=== PATIENT | female | born 1930 | race Caucasian/White ===

== ENCOUNTER 2018-02-07 08:39 | Inpatient (IN) | payer MEDICARE ==
[2018-02-07] VITALS (10 sets, daily range): BP systolic 135–190; BP diastolic 66–89; PULSE 53–65; RESP 16–25; TEMP 96.9–98.2; O2SAT 96–100
[~2018-02-07] VITALS: Ht 160 cm; Wt 64.3 kg
--- NOTE | 2018-02-07 08:56 | PD ---
HPI Chief Complaint: Stroke Alert Time Seen by Provider: 08:45 Travel History International Travel<30 days: No Contact w/Intl Traveler<30days: No Traveled to known affect area: No History of Present Illness HPI The patient is a 87-year-old female who presents to the emergency department via EMS as a stroke alert. The patient states she was going down of elevator earlier today when she felt like her leg suddenly became weak. Patient attributed to gout that affects her foot. However, the patient felt like she is going to fall and another gentleman helped her to the floor. When EMS arrived the patient initially refused transport. EMS was leaving when they were called once again because it patient suddenly had "garbled speech "and left -sided facial droop with possibly left upper extremity weakness. EMS states that the symptoms started 30 minutes prior to arrival, and approximately 8:15 AM. The patient's symptoms did improve per EMS, the speech returned to normal and the left facial droop improved. The patient denies any current physical complaints including dysarthria, chest pain, shortness breath, nausea, vomiting , abdominal pain, and weakness. The patient denies taking any anticoagulants. [facility] Past Medical History Narrative Medical Hypertension, hyperlipidemia, thyroid disease Past Surgical History Narrative Surgical Thyroid surgery Social History Tobacco Use: No Allergies-Medications (Allergen,Severity, Reaction): Coded Allergies: Penicillins (Verified Allergy, Unknown, hives, 02/07/18) erythromycin base (Verified Allergy, Unknown, rash, 02/07/18) tetracycline (Verified Allergy, Unknown, hives, 02/07/18) Review of Systems Except as stated in HPI: all other systems reviewed are Neg HENT: No: Lightheadedness Cardiovascular: No: Chest Pain or Discomfort Respiratory: No: Shortness of Breath Musculoskeletal: Positive: Weakness Neurologic: Positive: Weakness, Dizziness, Focal Abnormalities, Slurred Speech , No: Change in Mentation, Paresthesia, Sensory Disturbance Physical Exam Narrative GENERAL: Awake, alert, pleasant 87-year-old female who appears her stated age and is in no acute respiratory distress. SKIN: Focused skin assessment warm/dry. HEAD: Atraumatic. Normocephalic. EYES: Pupils equal and round. Pupils are 3 mm bilateral and reactive. EOMs are intact. ENT: No nasal bleeding or discharge. Mucous membranes pink and moist. NECK: Trachea midline. No JVD. CARDIOVASCULAR: Regular rate and rhythm. No murmur appreciated. RESPIRATORY: No accessory muscle use. Clear to auscultation. Breath sounds equal bilaterally. GASTROINTESTINAL: Abdomen soft, non-tender, nondistended. No rebound tenderness. MUSCULOSKELETAL: No obvious deformities. No clubbing. No cyanosis. No edema. NEUROLOGICAL: Awake and alert. Mild left facial droop noted. No dysarthria noted. Drift of the left arm. No drift of the lower extremities noted. Finger to nose normal. Heel to cavanaugh normal. Sensation is symmetric on the face , arms, and legs. Patient is oriented 3. EOMs are intact. Patient is able to see fingers at a distance of 2 feet without difficulty. PSYCHIATRIC: Appropriate mood and affect; insight and judgment normal. Data Data Last Documented VS Vital Signs Date Time Temp Pulse Resp B/P (MAP) Pulse Ox O2 Delivery O2 Flow Rate FiO2 02/07/18 08:45 96 Nasal Cannula 2.00 02/07/18 08:42 59 16 188/77 (114) Orders Orders Diet Npo (02/07/18 Breakfast) Activity Bed Rest (02/07/18 ) Electrocardiogram (02/07/18 ) I-Stat Profile (02/07/18 08:45) Prothrombin Time / Inr (Pt) (02/07/18 08:45) Act Partial Throm Time (Ptt) (02/07/18 08:45) Complete Blood Count With Diff (02/07/18 08:45) Fibrinogen (02/07/18 08:45) Creatine Kinase (Cpk) (02/07/18 08:45) Troponin I (02/07/18 08:45) Ua Includes Microscopic (02/07/18 08:45) Drug Screen, Random Urine (02/07/18 08:45) Type And Screen (02/07/18 08:45) Ct Brain W/O Iv Contrast(Rout) (02/07/18 ) Consult Neurology (02/07/18 ) Blood Glucose (02/07/18 08:45) Ecg Monitoring (02/07/18 08:45) Neuro Checks Q2HX12,Q4H (02/07/18 08:45) Nursing Bedside Swallow Assess .ONCE (02/07/18 08:45) Iv Access Insert/Monitor (02/07/18 08:45) NPO (02/07/18 08:45) Oximetry (02/07/18 08:45) Resp Oxygen Nc Stroke (02/07/18 ) Cath For Specimen (02/07/18 08:45) Labs Laboratory Tests Test 02/07/18 08:50 Bedside Hemoglobin 11.2 G/DL Bedside Hematocrit 33.0 % Bedside Sodium 137 MMOL/L Bedside Potassium 3.6 MMOL/L Bedside Chloride 105 MMOL/L Bedside Blood Urea Nitrogen 12 MG/DL Bedside Creatinine 1.1 MG/DL Bedside Glucose 123 MG/DL MDM Medical Decision Making Medical Screen Exam Complete: Yes Emergency Medical Condition: Yes Medical Record Reviewed: Yes Interpretation(s) EKG reveals sinus bradycardia with a heart rate of 55. Nonspecific T-wave changes. Differential Diagnosis Differential diagnosis includes CVA, TIA, crescendo TIA, complicated migraine, seizure, intracranial hemorrhage, intracranial tumor, hyponatremia, hypoglycemia. Narrative Course IV was established, labs are drawn and sent, and the patient was placed on cardiac telemetry monitoring and continuous pulse oximetry monitoring. A stroke alert was called the patient went immediately to CT for CT of the brain. The patient's symptoms do appear to have improved according to EMS, the patient no longer has dysarthria, but still has mild left facial droop and left arm drift. Stroke scale time was 8:45 AM. Stroke scale was 2. I discussed the patient with the neurologist, Dr. Solares, at 9:08 AM. He recommends TPA if the patient is still symptomatic or at least offering TPA. Therefore, the patient was reassessed at 9:11 AM. She no longer had any visible drift of the left upper extremity and her smile was symmetric. The patient's stroke scale is now 0. Therefore, no TPA will be administered. However, I did have a discussion with the patient regarding the possibility her symptoms may return and the need for TPA at that time. Diagnosis Primary Impression: TIA (transient ischemic attack) Qualified Codes: G45.9 - Transient cerebral ischemic attack, unspecified Condition: Stable Liang Ramos MD February 07, 2018 08:55
--- NOTE | 2018-02-07 09:14 | RADRPT ---
EXAM DATE/TIME: 02/07/2018 08:54 [facility] COMPARISON: No previous studies available for comparison. INDICATIONS : Stroke alert, left side facial droop. RADIATION DOSE: 56.35 CTDIvol (mGy) This report was called by Dr. Lopez to Dr. Ramos at 9: 08 AM. MEDICAL HISTORY : Non-responsive. SURGICAL HISTORY : Non-responsive. ENCOUNTER: Initial ACUITY: 1 day PAIN SCALE: Non-responsive LOCATION: cranial TECHNIQUE: Multiple contiguous axial images were obtained of the head. Using automated exposure control and adj ustment of the mA and/or kV according to patient size, radiation dose was kept as low as reasonably a chievable to obtain optimal diagnostic quality images. DICOM format image data is available electro nically for review and comparison. FINDINGS: CEREBRUM: There is mild generalized atrophy. Ventricles are normal. There is moderate periventricular white mat ter low-attenuation. An old lacune is present in the right basal ganglia measuring 10 mm. No midline shift, mass lesion, hemorrhage or acute infarction. No extra-axial fluid collections are seen. POSTERIOR FOSSA: The cerebellum and brainstem demonstrate no acute finding. The 4th ventricle is midline. The cerebe llopontine angle is unremarkable. EXTRACRANIAL: Visualized sinuses are clear. SKULL: The calvaria is intact. No evidence of skull fracture. CONCLUSION: 1. No acute intracranial abnormality is identified. 2. Chronic findings include mild generalized atrophy and chronic periventricular white matter change characteristic of chronic microvascular ischemia. There is also an old lacune in the right basal gang arlin. Jp Lopez MD on February 07, 2018 at 9:03 Board Certified Radiologist. This report was verified electronically.
--- NOTE | 2018-02-07 09:27 | PD.CONS ---
History of Present Illness Service Neurology Consult Requested By Dr. Ramos Reason for Consult stroke alert Primary Care Physician Unknown History of Present Illness 87 y/o female noted dizziness getting on the elevator around 815am this morning and then co-worker noted left facial droop and slurred speech. There was also a question of left UE weakness. She was brought to the ER. ER physician also noted left pronator drift. Symptoms resolved after CT was completed. Pt is now back at baseline, no drift, no facial droop, dysarthria resolved. Denies any weakness, visual change, sensory changes. Reports hx of HTN and hyperlipidemia. Follows with Dr. Quarles for "leaky valve" No hx of TIA or stroke. She does not take any anti-platelet medication at home. (Princess Mckeon) Review of Systems All other ROS: ROS reviewed as documented in chart (Princess Mckeon) Past Family Social History Allergies: Coded Allergies: Penicillins (Verified Allergy, Unknown, hives, 02/07/18) erythromycin base (Verified Allergy, Unknown, rash, 02/07/18) tetracycline (Verified Allergy, Unknown, hives, 02/07/18) Past Medical History HTN, hyperlipidemia, "leaky valve" Family History noncontributory (Princess Mckeon) Exam I&O / VS Vital Signs Date Time Temp Pulse Resp B/P (MAP) Pulse Ox O2 Delivery O2 Flow Rate FiO2 02/07/18 08:45 96 Nasal Cannula 2.00 02/07/18 08:45 97 2.00 02/07/18 08:42 59 16 188/77 (114) 99 General: Alert and Oriented, No acute distress Eye: PERRL, EOMI Respiratory: Non-labored respirations Cardiology: Normal rate Neurologic: Alert, Oriented, Normal sensory, Normal motor, No focal defects, CN II-XII intact, Normal DTR's Psychiatric: Appropriate mood & affect Exam Comments no drift, speech normal, no facial droop, gait withheld (Princess Mckeon) Review/Management Diagnosis/Plan: (1) TIA (transient ischemic attack) ICD Codes: G45.9 - Transient cerebral ischemic attack, unspecified Status: Acute Plan: MRI brain MRA head/neck ECHO telemetry not currently on anti-platelet therapy (Princess Mckeon) Daily Summary d/w PA. seen and examined. agree with above. will start aspirin/plavix. stop aspirin in 3 months. [address] driving. outpatient neuro f/u and cognitive testing. daughter has been noticing some memory changes. daughter lives in the area (Michael Solares MD) Problem Qualifiers (1) TIA (transient ischemic attack): Qualified Codes: G45.9 - Transient cerebral ischemic attack, unspecified Princess Mckeon February 07, 2018 09:27 Michael Solares MD February 07, 2018 15:48
[2018-02-07 09:28] LABS: TROPONIN I LESS THAN 0.02 NG/ML (0.02-0.05)
[2018-02-07] MEDS ORDERED: SYNT88TA PO (09:37)
[2018-02-07] MEDS ORDERED: ASPIRIN 81 MG CHEW TAB CHEW ONE (10:15)
[2018-02-07] MEDS ORDERED: LACTULOSE SYRUP 20 GM/30 ML CUP PO PRN (10:45)
[2018-02-07] MEDS ORDERED: NALOXONE HCL 0.4 MG/ML AMP IV PUSH PRN (10:45)
[2018-02-07] MEDS ORDERED: MAGNESIUM HYDROXIDE SUSP 30 ML CUP PO PRN (10:45)
[2018-02-07] MEDS ORDERED: ONDANSETRON HCL 4 MG/2 ML VIAL IVP PRN (10:45)
[2018-02-07] MEDS ORDERED: SODIUM CHLORIDE 0.9% FLUSH 10 ML FLUSH IV FLUSH PRN (10:45)
[2018-02-07] MEDS ORDERED: BISACODYL 10 MG SUPP RECTAL PRN (10:45)
[2018-02-07] MEDS ORDERED: SENNOSIDES 8.6 MG TAB PO PRN (10:45)
[2018-02-07 11:04] LABS: AUTOMATED NEUTROPHIL # 5.7 TH/MM3 (1.8-7.7); BASOPHIL % 0.3 % (0.0-2.0); EOSINOPHIL % 0.4 % (0.0-4.0); HEMATOCRIT 35.2 % (35.0-46.0); LYMPH % 25.4 % (9.0-44.0); LYMPHOCYTE # 2.2 TH/MM3 (1.0-4.8); MEAN CELL VOLUME 94.9 FL (80.0-100.0); MEAN CORPUSCULAR HEMOGLOBIN 32.4 PG (27.0-34.0); MEAN CORPUSCULAR HGB CONC 34.2 % (32.0-36.0); MEAN PLATELET VOLUME 9.4 FL (7.0-11.0); MONO % 6.7 % (0.0-8.0); MONOCYTE # 0.6 TH/MM3 (0-0.9); NEUT % 67.2 % (16.0-70.0); PLATELET COUNT 189 TH/MM3 (150-450); RED BLOOD COUNT 3.71 MIL/MM3 (4.00-5.30); RED CELL DISTRIBUTION WIDTH 14.2 % (11.6-17.2); WHITE BLOOD COUNT 8.5 TH/MM3 (4.0-11.0)
[2018-02-07 11:14] LABS: INTERNATIONAL NORMALIZED RATIO 1.1 RATIO; PROTHROMBIN TIME - PATIENT 11.5 SEC (9.8-11.6)
[2018-02-07] MEDS ORDERED: GADODIAMIDE PF 287 MG/ML 20 ML VIAL (for RAD MRI) IVCONTRAST ONE (12:04)
--- NOTE | 2018-02-07 12:11 | RADRPT ---
EXAM DATE/TIME: 02/07/2018 11:33 [facility] COMPARISON: CT BRAIN W/O CONTRAST, February 07, 2018, 8:54. INDICATIONS : Slurred speech. Left sided facial droop. MEDICAL HISTORY : Hypertension. Carcinoma, thyroid. SURGICAL HISTORY : Thyroidectomy. cataract ENCOUNTER: Initial ACUITY: 1 day PAIN SCORE: 0/10 LOCATION: cranial TECHNIQUE: Multiplanar, multisequence MRI of the brain was performed without contrast. FINDINGS: CEREBRUM: The ventricles are normal for age with diffuse moderate atrophic change. There is an old lacunar infa rct in the right basal ganglia. No evidence of midline shift, mass lesion, hemorrhage or acute infarc tion. No extraaxial fluid collections are seen. The pituitary gland and suprasellar cistern are nor mal in configuration. WHITE MATTER: On the flair weighted images is increased signal in the periventricular white matter and centrum semi ovale characteristic of chronic small vessel ischemic change. POSTERIOR FOSSA: The cerebellum and brainstem are intact. The 4th ventricle is midline. The cerebellopontine angle is unremarkable. The cerebellar tonsils are normal in position. DIFFUSION IMAGING: No focal areas of restricted diffusion are seen. No evidence of acute infarction. EXTRACRANIAL: The visualized portions of the orbits and paranasal sinuses are unremarkable. CONCLUSION: 1. No acute hemorrhage, mass or evidence of infarction. 2. Moderate atrophic change and chronic small vessel ischemic changes. 3. Old lacunar infarct in the right basal ganglia. Alessandro White MD on February 07, 2018 at 12:07 Board Certified Radiologist. This report was verified electronically.
--- NOTE | 2018-02-07 12:21 | RADRPT ---
EXAM DATE/TIME: 02/07/2018 11:33 [facility] COMPARISON: No previous studies available for comparison. INDICATIONS : Slurred speech. Left sided weakness. MEDICAL HISTORY : Hypertension. Carcinoma, thyroid. SURGICAL HISTORY : Thyroidectomy. cataract ENCOUNTER: Initial ACUITY: 1 day PAIN SCORE: 0/10 LOCATION: cranial Please note a normal MRA of the brain does not entirely exclude the possibility of a small aneurysm, nor the possibility of distal intracranial vessel disease. TECHNIQUE: 3D time of flight MRA was performed. Source images, multiplanar STS MIP, and 3D volume MIP reconstru ctions were reviewed. FINDINGS: There is excellent visualization of the major intracranial arteries out to the second-order branch ve ssels. There is no evidence for aneurysm, vessel truncation or stenosis, and no evidence for vascula r malformation. No flow is seen in the anterior communicating artery or either PCOM. CONCLUSION: No evidence of vessel truncation or aneurysm. Incomplete napaimute of [place]. Benoit Anderson MD on February 07, 2018 at 12:17 Board Certified Radiologist. This report was verified electronically.
--- NOTE | 2018-02-07 12:23 | RADRPT ---
EXAM DATE/TIME: 02/07/2018 11:33 [facility] COMPARISON: No previous studies available for comparison. INDICATIONS : Slurred specch. Left sided weakness. CONTRAST: 20 cc Omniscan (gadodiamide) IV MEDICAL HISTORY : Hypertension. Carcinoma, thyroid. SURGICAL HISTORY : Thyroidectomy. ENCOUNTER: Initial ACUITY: 1 day PAIN SCORE: 0/10 LOCATION: cranial Percent stenosis is calculated using the diameter of the stenotic region over the diameter of the nor mal distal internal carotid artery. TECHNIQUE: Bolus infused MRA of the extracranial circulation was performed using a neurovascular coil. Post pro cessing was performed including rotating subvolume maximum intensity projections of each carotid jessica ry, rotating full volume maximum intensity projections of both carotid arteries, sagittal and coronal sliding thin slab reformations of each carotid artery, and left oblique sliding thin slab reformatio n through the aortic arch to include the origin of the arch branch vessels. FINDINGS: AORTIC ARCH: There is a three vessel origin of the great vessels from the aorta. No evidence of ostial narrowing. RIGHT CAROTID: The common carotid artery is intact. The carotid bulb has a normal configuration without ulceration or narrowing. The internal carotid artery lumen is smooth without stenosis. The external carotid ar tico is intact. LEFT CAROTID: The common carotid artery is intact. The carotid bulb has a normal configuration without ulceration or narrowing. The internal carotid artery lumen is smooth without stenosis. The external carotid ar tico is intact. VERTEBRALS: The vertebral arteries have a symmetric diameter. No stenotic lesions are seen. CONCLUSION: No stenotic lesion seen. Benoit Anderson MD on February 07, 2018 at 12:19 Board Certified Radiologist. This report was verified electronically.
--- NOTE | 2018-02-07 15:18 | EKG ---
Date Performed: 02/07/2018 Time Performed: 09:10:39 PTAGE: 87 years EKG: SINUS BRADYCARDIA NONSPECIFIC ST & T-WAVE ABNORMALITY BORDERLINE ECG NO PREVIOUS TRACING DOCTOR: Zachary Quarles Interpretating Date/Time 02/07/2018 15:16:53
[2018-02-07] MEDS: CLOPIDOGREL 75 MG TAB PO SCH (16:22)
[2018-02-07 17:02] LABS: CHOLESTEROL/ HDL RATIO 4.46 RATIO; HDL CHOLESTEROL 47.9 MG/DL (40.0-60.0)
[2018-02-07 17:54] LABS: BACTERIA, URINE RARE /hpf; BILIRUBIN, URINE NEG (NEG); BLOOD, URINE NEG (NEG); GLUCOSE,URINE NEG (NEG); KETONE, URINE TRACE mg/dL (NEG); MUCUS URINE FEW /lpf (OCC); NITRITE,URINE NEG (NEG); SQUAMOUS EPITHELIAL CELL URINE 1 /hpf (0-5); URINE COLOR LIGHT-YELLOW (YELLW/STRAW); URINE LEUKOCYTE ESTERASE NEG (NEG)
[2018-02-07] MEDS: SODIUM CHLORIDE 0.9% FLUSH 10 ML FLUSH IV FLUSH SCH (20:37)
[2018-02-07] MEDS: DOCUSATE SODIUM 50 MG/SENNA 8.6 MG TAB PO SCH (20:37)
[2018-02-07] MEDS: HEPARIN SODIUM - SQ 10,000 UNITS/ML VIAL SQ SCH (20:38)
[2018-02-08] VITALS (14 sets, daily range): BP systolic 140–176; BP diastolic 72–90; PULSE 52–81; RESP 18; TEMP 97.5–98.7; O2SAT 93–99
[2018-02-08 05:05] LABS: ALBUMIN 3.1 GM/DL (3.4-5.0); ALT (GPT) 13 U/L (10-53); AST (GOT) 18 U/L (15-37); BLOOD UREA NITROGEN 16 MG/DL (7-18); CALCIUM 9.8 MG/DL (8.5-10.1); CHLORIDE 106 MEQ/L (98-107); CREATININE 1.04 MG/DL (0.50-1.00); GLOMERULAR FILTRATION RATE 50 ML/MIN (>89); GLUCOSE,RANDOM 106 MG/DL (74-106); SODIUM (NA) 140 MEQ/L (136-145)
[2018-02-08 05:07] LABS: ALKALINE PHOSPHATASE 67 U/L (45-117); TOTAL BILIRUBIN ADULT 0.5 MG/DL (0.2-1.0)
--- NOTE | 2018-02-08 06:39 | HHI.HP ---
History of Present Illness Primary Care Physician Antonio Bateman, DO Admission Diagnosis TIA, dysarthria resolved, dizziness resolved Diagnoses: History of Present Illness The patient is a 87-year-old female who presents to the emergency department via EMS as a stroke alert. She felt like her leg suddenly became weak and had "garbled speech "and left-sided facial droop with possibly left upper extremity weakness. Symptoms resolved on evac ride to hospital. Medical history includes HTN, Hypothyroid and HLD. Review of Systems Constitutional: COMPLAINS OF: Dizziness Except as stated in HPI: all other systems reviewed are Neg Past Family Social History Allergies: Coded Allergies: Penicillins (Verified Allergy, Unknown, hives, 02/07/18) erythromycin base (Verified Allergy, Unknown, rash, 02/07/18) tetracycline (Verified Allergy, Unknown, hives, 02/07/18) Past Medical History HTN HLD Hypothyroid Past Surgical History Thyroid surgery Reported Medications Levothyroxine Active Ordered Medications Current Medications Medications (Trade) Dose Ordered Sig/Glenn Route Start Time Stop Time Status Last Admin (NS Flush) 2 ml UNSCH PRN IV FLUSH 02/07/18 10:45 (NS Flush) 2 ml BID IV FLUSH 02/07/18 21:00 02/07/18 20:37 (Tylenol) 650 mg Q4H PRN PO 02/07/18 10:45 (Zofran Inj) 4 mg Q6H PRN IVP 02/07/18 10:45 (Narcan Inj) 0.4 mg UNSCH PRN IV PUSH 02/07/18 10:45 (Elizabeth-Colace) 1 tab BID PO 02/07/18 21:00 02/07/18 20:37 (Milk Of Magnesia Liq) 30 ml Q12H PRN PO 02/07/18 10:45 (Senokot) 17.2 mg Q12H PRN PO 02/07/18 10:45 (Dulcolax Supp) 10 mg DAILY PRN RECTAL 02/07/18 10:45 (Lactulose Liq) 30 ml DAILY PRN PO 02/07/18 10:45 (Heparin Inj) 5,000 units Q12HR SQ 02/07/18 21:00 02/07/18 20:38 (Ecotrin Ec) 325 mg DAILY PO 5/2/18 15:45 (Plavix) 75 mg DAILY PO 02/07/18 15:45 02/07/18 16:22 Social History Denies ETOH, Tobacco Physical Exam Vital Signs Vital Signs Date Time Temp Pulse Resp B/P (MAP) Pulse Ox O2 Delivery O2 Flow Rate FiO2 02/08/18 06:11 98.6 65 18 168/82 (110) 96 02/08/18 05:06 21 02/08/18 04:05 52 02/08/18 00:24 98.7 59 18 162/88 (112) 94 02/08/18 00:01 61 02/07/18 21:10 98.2 60 18 178/86 (116) 97 02/07/18 20:02 60 02/07/18 16:15 65 02/07/18 16:10 97.4 63 20 135/66 (89) 97 02/07/18 11:22 96.9 60 20 190/89 (122) 100 02/07/18 10:59 98 02/07/18 10:30 56 17 170/74 (106) 98 Nasal Cannula 2.00 02/07/18 09:31 56 25 186/78 (114) 98 Nasal Cannula 2.00 02/07/18 08:52 53 18 187/75 (112) 100 Nasal Cannula 2.00 02/07/18 08:45 96 Nasal Cannula 2.00 02/07/18 08:45 97 2.00 02/07/18 08:44 98 Nasal Cannula 2.00 02/07/18 08:42 98 Nasal Cannula 2.00 02/07/18 08:42 97.7 59 16 188/77 (114) 99 Physical Exam GENERAL: This is a well-nourished, well-developed patient, in no apparent distress. SKIN: No rashes, ecchymoses or lesions. Cool and dry. HEAD: Atraumatic. Normocephalic. No temporal or scalp tenderness. EYES: Pupils equal round and reactive. . ENT: Nose without bleeding, purulent drainage or septal hematoma. Airway patent. NECK: Trachea midline. No JVD or lymphadenopathy. Supple, nontender, no meningeal signs. CARDIOVASCULAR: Regular rate and rhythm without murmurs, gallops, or rubs. RESPIRATORY: Clear to auscultation. Breath sounds equal bilaterally. No wheezes , rales, or rhonchi. GASTROINTESTINAL: Abdomen soft, non-tender, nondistended. MUSCULOSKELETAL: Extremities without clubbing, cyanosis, or edema. NEUROLOGICAL: Awake and alert. Cranial nerves II through XII intact. Normal speech Laboratory Laboratory Tests Test 02/07/18 08:50 02/07/18 10:10 02/07/18 17:35 02/08/18 04:26 Bedside Hemoglobin 11.2 Bedside Hematocrit 33.0 Bedside Sodium 137 Bedside Potassium 3.6 Bedside Chloride 105 Bedside Blood Urea Nitrogen 12 Bedside Creatinine 1.1 Bedside Glucose 123 Total Creatine Kinase 81 Troponin I LESS THAN 0.02 Triglycerides Level 106 Cholesterol Level 214 LDL Cholesterol 145 HDL Cholesterol 47.9 Cholesterol/HDL Ratio 4.46 Vitamin B12 Level 261 White Blood Count 8.5 Red Blood Count 3.71 Hemoglobin 12.0 Hematocrit 35.2 Mean Corpuscular Volume 94.9 Mean Corpuscular Hemoglobin 32.4 Mean Corpuscular Hemoglobin Concent 34.2 Red Cell Distribution Width 14.2 Platelet Count 189 Mean Platelet Volume 9.4 Neutrophils (%) (Auto) 67.2 Lymphocytes (%) (Auto) 25.4 Monocytes (%) (Auto) 6.7 Eosinophils (%) (Auto) 0.4 Basophils (%) (Auto) 0.3 Neutrophils # (Auto) 5.7 Lymphocytes # (Auto) 2.2 Monocytes # (Auto) 0.6 Eosinophils # (Auto) 0.0 Basophils # (Auto) 0.0 CBC Comment DIFF FINAL Differential Comment Prothrombin Time 11.5 Prothromb Time International Ratio 1.1 Activated Partial Thromboplast Time 25.9 Fibrinogen 450 Urine Color LIGHT-YELLOW Urine Turbidity CLEAR Urine pH 6.0 Urine Specific [place] 1.014 Urine Protein TRACE Urine Glucose (UA) NEG Urine Ketones TRACE Urine Occult Blood NEG Urine Nitrite NEG Urine Bilirubin NEG Urine Urobilinogen LESS THAN 2.0 Urine Leukocyte Esterase NEG Urine WBC 1 Urine Squamous Epithelial Cells 1 Urine Bacteria RARE Urine Mucus FEW Urine Opiates Screen NEG Urine Barbiturates Screen NEG Urine Amphetamines Screen NEG Urine Benzodiazepines Screen NEG Urine Cocaine Screen NEG Urine Cannabinoids Screen NEG Blood Urea Nitrogen 16 Creatinine 1.04 Random Glucose 106 Total Protein 7.0 Albumin 3.1 Calcium Level 9.8 Alkaline Phosphatase 67 Aspartate Amino Transf (AST/SGOT) 18 Alanine Aminotransferase (ALT/SGPT) 13 Total Bilirubin 0.5 Sodium Level 140 Potassium Level 3.7 Chloride Level 106 Carbon Dioxide Level 23.0 Anion Gap 11 Estimat Glomerular Filtration Rate 50 Result Diagram: 02/07/18 1010 02/08/18 0426 Imaging Last 72 hours Impressions Neck Magnetic Resonance Angiography 02/07/18 0000 Signed Impressions: Service Date/Time: Wednesday, February 07, 2018 11:33 - CONCLUSION: No stenotic lesion seen. Benoit Anderson MD Head Magnetic Resonance Angiography 02/07/18 0000 Signed Impressions: Service Date/Time: Wednesday, February 07, 2018 11:33 - CONCLUSION: No evidence of vessel truncation or aneurysm. Incomplete [place]. Benoit Anderson MD Head CT 02/07/18 0000 Signed Impressions: Service Date/Time: Wednesday, February 07, 2018 08:54 - CONCLUSION: 1. No acute intracranial abnormality is identified. 2. Chronic findings include mild generalized atrophy and chronic periventricular white matter change characteristic of chronic microvascular ischemia. There is also an old lacune in the right basal ganglia. Jp Lopez MD Brain MRI 02/07/18 0000 Signed Impressions: Service Date/Time: Wednesday, February 07, 2018 11:33 - CONCLUSION: 1. No acute hemorrhage, mass or evidence of infarction. 2. Moderate atrophic change and chronic small vessel ischemic changes. 3. Old lacunar infarct in the right basal ganglia. Alessandro White MD Capyeseniai VTE Risk Assessment Caprini VTE Risk Assessment: Mod/High Risk (score >= 2) Caprini Risk Assessment Model Point Value = 1 Point Value = 2 Point Value = 3 Point Value = 5 Age 41-60 Minor surgery BMI > 25 kg/m2 Swollen legs Varicose veins or History of unexplained or recurrent spontaneous Oral contraceptives or hormone replacement Sepsis (< 1 month) Serious lung disease, including pneumonia (< 1 month) Abnormal pulmonary function Acute myocardial infarction Congestive heart failure (< 1 month) History of inflammatory bowel disease Medical patient at bed rest Age 61-74 Arthroscopic surgery Major open surgery (> 45 min) Laparoscopic surgery (> 45 min) Malignancy Confined to bed (> 72 hours) Immobilizing plaster cast Central venous access Age >= 75 History of VTE Family history of VTE Factor V Leiden Prothrombin [id number] Lupus anticoagulant Anticardiolipin antibodies Elevated serum homocysteine Heparin-induced thrombocytopenia Other congenital or acquired thrombophilia Stroke (< 1 month) Elective arthroplasty Hip, pelvis, or leg fracture Acute spinal cord injury (< 1 month) Prophylaxis Regimen Total Risk Factor Score Risk Level Prophylaxis Regimen 0-1 Low Early ambulation 2 Moderate Order ONE of the following: *Sequential Compression Device (SCD) *Heparin 5000 units SQ BID 3-4 Higher Order ONE of the following medications: *Heparin 5000 units SQ TID *Enoxaparin/Lovenox 40 mg SQ daily (WT < 150 kg, CrCl > 30 mL/min) *Enoxaparin/Lovenox 30 mg SQ daily (WT < 150 kg, CrCl > 10-29 mL/min) *Enoxaparin/Lovenox 30 mg SQ BID (WT < 150 kg, CrCl > 30 mL/min) AND/OR *Sequential Compression Device (SCD) 5 or more Highest Order ONE of the following medications: *Heparin 5000 units SQ TID (Preferred with Epidurals) *Enoxaparin/Lovenox 40 mg SQ daily (WT < 150 kg, CrCl > 30 mL/min) *Enoxaparin/Lovenox 30 mg SQ daily (WT < 150 kg, CrCl > 10-29 mL/min) *Enoxaparin/Lovenox 30 mg SQ BID (WT < 150 kg, CrCl > 30 mL/min) AND *Sequential Compression Device (SCD) Assessment and Plan Problem List: (1) TIA (transient ischemic attack) ICD Codes: G45.9 - Transient cerebral ischemic attack, unspecified Status: Acute Plan: Symptoms resolved Neuro following Follow recommendations (2) Hypothyroid ICD Codes: E03.9 - Hypothyroidism, unspecified Status: Chronic Plan: Cont home medications (3) HTN (hypertension) ICD Codes: I10 - Essential (primary) hypertension Status: Chronic Plan: She does take amlodipine 10mg at home, will restart (4) Gout ICD Codes: M10.9 - Gout, unspecified Plan: check uric acid, she take allopurinol at home, will cont Problem Qualifiers (1) TIA (transient ischemic attack): Qualified Codes: G45.9 - Transient cerebral ischemic attack, unspecified (2) Hypothyroid: Qualified Codes: E03.9 - Hypothyroidism, unspecified (3) HTN (hypertension): Qualified Codes: I10 - Essential (primary) hypertension Aleah Mckay February 08, 2018 06:39
[2018-02-08 07:54] LABS: THYROXINE (T4) 12.1 MCG/DL (4.8-13.9)
[2018-02-08] MEDS: DOCUSATE SODIUM 50 MG/SENNA 8.6 MG TAB PO SCH ×2 (08:03→20:48)
[2018-02-08] MEDS: SODIUM CHLORIDE 0.9% FLUSH 10 ML FLUSH IV FLUSH SCH ×2 (08:03→20:49)
[2018-02-08] MEDS: CLOPIDOGREL 75 MG TAB PO SCH (08:03)
[2018-02-08] MEDS: ALLOPURINOL 100 MG TAB PO SCH (08:03)
[2018-02-08] MEDS: HEPARIN SODIUM - SQ 10,000 UNITS/ML VIAL SQ SCH ×2 (08:04→20:49)
--- NOTE | 2018-02-08 09:12 | HHI.PR ---
Review/Management Diagnosis/Plan: (1) TIA (transient ischemic attack) ICD Codes: G45.9 - Transient cerebral ischemic attack, unspecified Status: Acute Plan: neuro stable aspirin/plavix. stop aspirin in 3 months. 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 outpatient neuro f/u and cognitive testing. daughter has been noticing some memory changes. daughter lives in the area (2) HTN (hypertension) ICD Codes: I10 - Essential (primary) hypertension Status: Chronic (3) Hypothyroid ICD Codes: E03.9 - Hypothyroidism, unspecified Status: Chronic Subjective Subjective Comments No acute events reported No headache No chest pain No dyspnea Active Medications Current Medications Medications (Trade) Dose Ordered Sig/Glenn Route Start Time Stop Time Status Last Admin (NS Flush) 2 ml UNSCH PRN IV FLUSH 02/07/18 10:45 (NS Flush) 2 ml BID IV FLUSH 02/07/18 21:00 02/08/18 08:03 (Tylenol) 650 mg Q4H PRN PO 02/07/18 10:45 (Zofran Inj) 4 mg Q6H PRN IVP 02/07/18 10:45 (Narcan Inj) 0.4 mg UNSCH PRN IV PUSH 02/07/18 10:45 (Elizabeth-Colace) 1 tab BID PO 02/07/18 21:00 02/08/18 08:03 (Milk Of Magnesia Liq) 30 ml Q12H PRN PO 02/07/18 10:45 (Senokot) 17.2 mg Q12H PRN PO 02/07/18 10:45 (Dulcolax Supp) 10 mg DAILY PRN RECTAL 02/07/18 10:45 (Lactulose Liq) 30 ml DAILY PRN PO 02/07/18 10:45 (Heparin Inj) 5,000 units Q12HR SQ 02/07/18 21:00 02/08/18 08:04 (Ecotrin Ec) 325 mg DAILY PO 02/08/18 15:45 (Plavix) 75 mg DAILY PO 02/07/18 15:45 02/08/18 08:03 (Norvasc) 10 mg DAILY PO 02/08/18 09:00 02/08/18 08:03 (Zyloprim) 100 mg DAILY PO 02/08/18 09:00 02/08/18 08:03 Allergies Allergies Coded Allergies Penicillins (Verified Allergy, Unknown, hives, 02/07/18) erythromycin base (Verified Allergy, Unknown, rash, 02/07/18) tetracycline (Verified Allergy, Unknown, hives, 02/07/18) Review of Systems All other ROS: ROS reviewed as documented in chart Exam I&O / VS Vital Signs Date Time Temp Pulse Resp B/P (MAP) Pulse Ox O2 Delivery O2 Flow Rate FiO2 02/08/18 07:44 150/90 (110) 02/08/18 07:34 97.9 57 18 93 02/08/18 07:12 62 02/08/18 06:11 98.6 65 18 168/82 (110) 96 02/08/18 05:06 21 02/08/18 04:05 52 02/08/18 00:24 98.7 59 18 162/88 (112) 94 02/08/18 00:01 61 02/07/18 21:10 98.2 60 18 178/86 (116) 97 02/07/18 20:02 60 02/07/18 16:15 65 02/07/18 16:10 97.4 63 20 135/66 (89) 97 02/07/18 11:22 96.9 60 20 190/89 (122) 100 02/07/18 10:59 98 02/07/18 10:30 56 17 170/74 (106) 98 Nasal Cannula 2.00 02/07/18 09:31 56 25 186/78 (114) 98 Nasal Cannula 2.00 General: Alert and Oriented, No acute distress Eye: PERRL, EOMI Respiratory: Non-labored respirations Cardiology: Normal rate Neurologic: Alert, Oriented, Normal sensory, Normal motor, No focal defects, CN II-XII intact, Normal DTR's Psychiatric: Appropriate mood & affect Objective Micro and Labs Laboratory Tests Test 02/07/18 10:10 02/07/18 17:35 02/08/18 04:26 White Blood Count 8.5 Red Blood Count 3.71 Hemoglobin 12.0 Hematocrit 35.2 Mean Corpuscular Volume 94.9 Mean Corpuscular Hemoglobin 32.4 Mean Corpuscular Hemoglobin Concent 34.2 Red Cell Distribution Width 14.2 Platelet Count 189 Mean Platelet Volume 9.4 Neutrophils (%) (Auto) 67.2 Lymphocytes (%) (Auto) 25.4 Monocytes (%) (Auto) 6.7 Eosinophils (%) (Auto) 0.4 Basophils (%) (Auto) 0.3 Neutrophils # (Auto) 5.7 Lymphocytes # (Auto) 2.2 Monocytes # (Auto) 0.6 Eosinophils # (Auto) 0.0 Basophils # (Auto) 0.0 CBC Comment DIFF FINAL Differential Comment Prothrombin Time 11.5 Prothromb Time International Ratio 1.1 Activated Partial Thromboplast Time 25.9 Fibrinogen 450 Urine Color LIGHT-YELLOW Urine Turbidity CLEAR Urine pH 6.0 Urine Specific [place] 1.014 Urine Protein TRACE Urine Glucose (UA) NEG Urine Ketones TRACE Urine Occult Blood NEG Urine Nitrite NEG Urine Bilirubin NEG Urine Urobilinogen LESS THAN 2.0 Urine Leukocyte Esterase NEG Urine WBC 1 Urine Squamous Epithelial Cells 1 Urine Bacteria RARE Urine Mucus FEW Urine Opiates Screen NEG Urine Barbiturates Screen NEG Urine Amphetamines Screen NEG Urine Benzodiazepines Screen NEG Urine Cocaine Screen NEG Urine Cannabinoids Screen NEG Blood Urea Nitrogen 16 Creatinine 1.04 Random Glucose 106 Total Protein 7.0 Albumin 3.1 Calcium Level 9.8 Alkaline Phosphatase 67 Aspartate Amino Transf (AST/SGOT) 18 Alanine Aminotransferase (ALT/SGPT) 13 Total Bilirubin 0.5 Sodium Level 140 Potassium Level 3.7 Chloride Level 106 Carbon Dioxide Level 23.0 Anion Gap 11 Estimat Glomerular Filtration Rate 50 Uric Acid 4.7 Thyroxine (T4) 12.1 Thyroid Stimulating Hormone 3rd Gen 0.163 Problem Qualifiers (1) TIA (transient ischemic attack): Qualified Codes: G45.9 - Transient cerebral ischemic attack, unspecified (2) HTN (hypertension): Qualified Codes: I10 - Essential (primary) hypertension (3) Hypothyroid: Qualified Codes: E03.9 - Hypothyroidism, unspecified Michael Solares MD February 08, 2018 09:11
[2018-02-08] MEDS: ASPIRIN EC 325 MG TABEC PO SCH (17:22)
[2018-02-08] MEDS: ATORVASTATIN 40 MG TAB PO SCH (20:50)
[2018-02-08 21:54] LABS: BILIRUBIN, URINE NEG (NEG); BLOOD, URINE NEG (NEG); GLUCOSE,URINE NEG (NEG); KETONE, URINE NEG (NEG); NITRITE,URINE NEG (NEG); PH, URINE 7.5 (5.0-8.5); SQUAMOUS EPITHELIAL CELL URINE <1 /hpf (0-5); URINE COLOR LIGHT-YELLOW (YELLW/STRAW); URINE LEUKOCYTE ESTERASE NEG (NEG)
[2018-02-09] VITALS (15 sets, daily range): BP systolic 120–209; BP diastolic 60–99; PULSE 64–87; RESP 12–17; TEMP 97.3–99.1; O2SAT 94–100
[2018-02-09] MEDS: HEPARIN SODIUM - SQ 10,000 UNITS/ML VIAL SQ SCH ×2 (09:01→20:49)
[2018-02-09] MEDS: ALLOPURINOL 100 MG TAB PO SCH (09:01)
[2018-02-09] MEDS: CLOPIDOGREL 75 MG TAB PO SCH (09:01)
[2018-02-09] MEDS: ASPIRIN EC 325 MG TABEC PO SCH (09:01)
[2018-02-09] MEDS: DOCUSATE SODIUM 50 MG/SENNA 8.6 MG TAB PO SCH ×2 (09:02→20:48)
[2018-02-09] MEDS: SODIUM CHLORIDE 0.9% FLUSH 10 ML FLUSH IV FLUSH SCH ×2 (09:02→20:49)
--- NOTE | 2018-02-09 09:13 | HHI.PR ---
Subjective Remarks Denies any complaints this am. Objective Vital Signs Date Time Temp Pulse Resp B/P (MAP) Pulse Ox O2 Delivery O2 Flow Rate FiO2 02/09/18 08:53 98.1 64 16 130/67 (88) 94 130/60 (83) 02/09/18 07:52 66 02/09/18 05:54 95 21 02/09/18 05:19 97.3 70 17 165/83 (110) 96 02/09/18 00:52 97.9 65 16 168/86 (113) 95 02/09/18 00:06 68 02/08/18 20:53 140/72 (94) 02/08/18 20:05 74 02/08/18 18:00 158/90 (112) 02/08/18 16:09 97.5 62 18 176/81 (112) 95 02/08/18 15:55 81 02/08/18 11:27 97.8 59 18 99 02/08/18 11:25 57 I/O 02/08/18 02/08/18 02/08/18 02/09/18 02/09/18 02/09/18 07:00 15:00 23:00 07:00 15:00 23:00 Intake Total 480 ml Balance 480 ml Intake Oral 480 ml # Voids 3 2 Result Diagram: 02/07/18 1010 02/08/18 0426 Imaging Last 72 hours Impressions Neck Magnetic Resonance Angiography 02/07/18 0000 Signed Impressions: Service Date/Time: Wednesday, February 07, 2018 11:33 - CONCLUSION: No stenotic lesion seen. Benoit Anderson MD Head Magnetic Resonance Angiography 02/07/18 0000 Signed Impressions: Service Date/Time: Wednesday, February 07, 2018 11:33 - CONCLUSION: No evidence of vessel truncation or aneurysm. Incomplete [place] of [place]. Benoit Anderson MD Head CT 02/07/18 0000 Signed Impressions: Service Date/Time: Wednesday, February 07, 2018 08:54 - CONCLUSION: 1. No acute intracranial abnormality is identified. 2. Chronic findings include mild generalized atrophy and chronic periventricular white matter change characteristic of chronic microvascular ischemia. There is also an old lacune in the right basal ganglia. Jp Lopez MD Brain MRI 02/07/18 0000 Signed Impressions: Service Date/Time: Wednesday, February 07, 2018 11:33 - CONCLUSION: 1. No acute hemorrhage, mass or evidence of infarction. 2. Moderate atrophic change and chronic small vessel ischemic changes. 3. Old lacunar infarct in the right basal ganglia. Alessandro White MD Objective Remarks GENERAL: This is a well-nourished, well-developed patient, in no apparent distress. HEENT- Pupils equal and reactive, airway patent NECK: Trachea midline. No JVD CARDIOVASCULAR: Regular rate and rhythm without murmurs, gallops, or rubs. RESPIRATORY: Clear to auscultation. Breath sounds equal bilaterally. GASTROINTESTINAL: Abdomen soft, non-tender, nondistended. MUSCULOSKELETAL: MONTANEZ, no edema NEUROLOGICAL: Awake and alert, speech normal Medications and IVs Current Medications Medications (Trade) Dose Ordered Sig/Glenn Route Start Time Stop Time Status Last Admin (NS Flush) 2 ml UNSCH PRN IV FLUSH 02/07/18 10:45 (NS Flush) 2 ml BID IV FLUSH 02/07/18 21:00 02/08/18 20:49 (Tylenol) 650 mg Q4H PRN PO 02/07/18 10:45 (Zofran Inj) 4 mg Q6H PRN IVP 02/07/18 10:45 (Narcan Inj) 0.4 mg UNSCH PRN IV PUSH 02/07/18 10:45 (Elizabeth-Colace) 1 tab BID PO 02/07/18 21:00 02/08/18 20:48 (Milk Of Magnesia Liq) 30 ml Q12H PRN PO 02/07/18 10:45 (Senokot) 17.2 mg Q12H PRN PO 02/07/18 10:45 (Dulcolax Supp) 10 mg DAILY PRN RECTAL 02/07/18 10:45 (Lactulose Liq) 30 ml DAILY PRN PO 02/07/18 10:45 (Heparin Inj) 5,000 units Q12HR SQ 02/07/18 21:00 02/08/18 20:49 (Ecotrin Ec) 325 mg DAILY PO 02/08/18 15:45 02/08/18 17:22 (Plavix) 75 mg DAILY PO 02/07/18 15:45 02/08/18 08:03 (Norvasc) 10 mg DAILY PO 02/08/18 09:00 02/08/18 08:03 (Zyloprim) 100 mg DAILY PO 02/08/18 09:00 02/08/18 08:03 (Lipitor) 40 mg HS PO 02/08/18 21:00 Assessment and Plan Problem List: (1) TIA (transient ischemic attack) ICD Codes: G45.9 - Transient cerebral ischemic attack, unspecified Status: Acute Plan: Symptoms resolve Follow recommendations (2) HTN (hypertension) ICD Codes: I10 - Essential (primary) hypertension Status: Chronic Plan: Cont to monitor (3) Gout ICD Codes: M10.9 - Gout, unspecified Plan: uric acid 4.7, cont allopurinol to prevent flare up. (4) Hypothyroid ICD Codes: E03.9 - Hypothyroidism, unspecified Status: Chronic Plan: Cont home medications Assessment and Plan Patient cleared for DC by neuro. daughter feel she is not safe at home. Patient agrees for some SNF placement CM consulted DC once arrangements made, [id number] on chart Problem Qualifiers (1) TIA (transient ischemic attack): Qualified Codes: G45.9 - Transient cerebral ischemic attack, unspecified (2) HTN (hypertension): Qualified Codes: I10 - Essential (primary) hypertension (3) Hypothyroid: Qualified Codes: E03.9 - Hypothyroidism, unspecified Aleah Mckay February 09, 2018 09:13
[2018-02-09] MEDS: ACETAMINOPHEN 325 MG TAB PO PRN ×2 (11:14→20:48)
[2018-02-09] MEDS ORDERED: cloNIDine HCL 0.1 MG TAB PO PRN (17:15)
[2018-02-09] MEDS: LISINOPRIL 5 MG TAB PO SCH (17:49)
[2018-02-09] MEDS: ATORVASTATIN 40 MG TAB PO SCH (20:48)
--- NOTE | 2018-02-09 21:14 | ECHRPT ---
Indication: CVA/TIA CONCLUSIONS The left ventricular systolic function is normal with an estimated ejection fraction in the range of 60-65%. Wall thickness is normal. Normal left ventricular size. [id number] mitral valve regurgitation. There is mild to moderate tricuspid valve regurgitation. The estimated pulmonary arterial pressure is 33 mmHg. BP: 150 / 90 HR: 57 Rhythm: Sinus MEASUREMENTS (Male / Female) Normal Values Technical Quality:Fair 2D ECHO LV Diastolic Diameter PLAX 4.2 cm 4.2 - 5.9 / 3.9 - 5.3 cm LV Systolic Diameter PLAX 2.8 cm IVS Diastolic Thickness 0.9 cm 0.6 - 1.0 / 0.6 - 0.9 cm LVPW Diastolic Thickness 1.0 cm 0.6 - 1.0 / 0.6 - 0.9 cm LV Relative Wall Thickness 0.5 LVOT Diameter 2.0 cm M-MODE Aortic Root Diameter MM 2.7 cm LA Systolic Diameter MM 2.6 cm LA Ao Ratio MM 1.0 AV Cusp Separation MM 1.5 cm DOPPLER AV Peak Velocity 137.0 cm/s AV Peak Gradient 7.5 mmHg LVOT Peak Velocity 105.0 cm/s LVOT Peak Gradient 4.4 mmHg AV Area Cont Eq pk 2.4 cm MR Peak Velocity 488.0 cm/s MR Peak Gradient 95.3 mmHg Mitral E Point Velocity 43.4 cm/s Mitral A Point Velocity 69.1 cm/s Mitral E to A Ratio 0.6 LV E' Lateral Velocity 6.9 cm/s Mitral E to LV E' Lateral Ratio 6.3 LV E' Septal Velocity 5.6 cm/s Mitral E to LV E' Septal Ratio 7.8 TR Peak Velocity 242.0 cm/s TR Peak Gradient 23.4 mmHg Right Atrial Pressure 10.0 mmHg Pulmonary Artery Systolic Pressu 33.4 mmHg Right Ventricular Systolic Press 33.4 mmHg FINDINGS LEFT VENTRICLE The left ventricular systolic function is normal with an estimated ejection fraction in the range of 60-65%. Wall thickness is normal. Normal left ventricular size. RIGHT VENTRICLE Normal right ventricular size and systolic function. LEFT ATRIUM The left atrial size is normal. RIGHT ATRIUM The right atrial size is normal. ATRIAL SEPTUM Normal atrial septal thickness without atrial level shunting by limited color doppler interrogation. AORTA The aortic root and proximal ascending aorta are normal in size on limited imaging. MITRAL VALVE [id number] mitral valve regurgitation. AORTIC VALVE Trileaflet aortic valve. No aortic valve stenosis or regurgitation. TRICUSPID VALVE There is mild to moderate tricuspid valve regurgitation. The estimated pulmonary arterial pressure is 33.4 mmHg. PULMONARY VALVE No pulmonary valve regurgitation or stenosis. VESSELS The inferior vena cava is normal in size. PERICARDIUM No pericardial effusion. Shellie Ponce MD, FACC (Electronically Signed) Final Date:09 Feb 2018 21:13
[2018-02-10] VITALS (12 sets, daily range): BP systolic 91–144; BP diastolic 53–70; PULSE 46–85; RESP 16–18; TEMP 97.1–98.5; O2SAT 93–100
--- NOTE | 2018-02-10 08:19 | HHI.PR ---
Review/Management Diagnosis/Plan: (1) TIA (transient ischemic attack) ICD Codes: G45.9 - Transient cerebral ischemic attack, unspecified Status: Acute Plan: neuro stable concern about underlying developing dementia recs aspirin/plavix. stop aspirin in 3 months. 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 outpatient neuro f/u and cognitive testing. (2) HTN (hypertension) ICD Codes: I10 - Essential (primary) hypertension Status: Chronic (3) Hypothyroid ICD Codes: E03.9 - Hypothyroidism, unspecified Status: Chronic Subjective Subjective Comments No acute events reported No headache No chest pain No dyspnea Active Medications Current Medications Medications (Trade) Dose Ordered Sig/Glenn Route Start Time Stop Time Status Last Admin (NS Flush) 2 ml UNSCH PRN IV FLUSH 02/07/18 10:45 (NS Flush) 2 ml BID IV FLUSH 02/07/18 21:00 02/09/18 20:49 (Tylenol) 650 mg Q4H PRN PO 02/07/18 10:45 02/09/18 20:48 (Zofran Inj) 4 mg Q6H PRN IVP 02/07/18 10:45 (Narcan Inj) 0.4 mg UNSCH PRN IV PUSH 02/07/18 10:45 (Elizabeth-Colace) 1 tab BID PO 02/07/18 21:00 02/09/18 20:48 (Milk Of Magnesia Liq) 30 ml Q12H PRN PO 02/07/18 10:45 (Senokot) 17.2 mg Q12H PRN PO 02/07/18 10:45 (Dulcolax Supp) 10 mg DAILY PRN RECTAL 02/07/18 10:45 (Lactulose Liq) 30 ml DAILY PRN PO 02/07/18 10:45 (Heparin Inj) 5,000 units Q12HR SQ 02/07/18 21:00 02/09/18 20:49 (Ecotrin Ec) 325 mg DAILY PO 02/08/18 15:45 02/09/18 09:01 (Plavix) 75 mg DAILY PO 02/07/18 15:45 02/09/18 09:01 (Norvasc) 10 mg DAILY PO 02/08/18 09:00 02/09/18 09:01 (Zyloprim) 100 mg DAILY PO 02/08/18 09:00 02/09/18 09:01 (Lipitor) 40 mg HS PO 02/08/18 21:00 (Catapres) 0.1 mg Q6H PRN PO 02/09/18 17:15 02/09/18 20:48 (Prinivil) 5 mg DAILY PO 02/09/18 17:15 02/09/18 17:49 Allergies Allergies Coded Allergies Penicillins (Verified Allergy, Unknown, hives, 02/07/18) erythromycin base (Verified Allergy, Unknown, rash, 02/07/18) tetracycline (Verified Allergy, Unknown, hives, 02/07/18) Review of Systems All other ROS: ROS reviewed as documented in chart Exam I&O / VS Vital Signs Date Time Temp Pulse Resp B/P (MAP) Pulse Ox O2 Delivery O2 Flow Rate FiO2 02/10/18 07:57 97.5 61 16 104/59 (74) 95 91/53 (66) 02/10/18 07:49 46 02/10/18 04:57 102/68 (79) 02/10/18 04:44 98.5 50 17 93 02/10/18 01:26 98.2 85 17 100 02/10/18 00:07 70 02/09/18 23:52 120/68 (85) 02/09/18 21:49 18 02/09/18 20:45 172/96 (121) 02/09/18 20:30 98 02/09/18 20:05 75 02/09/18 19:59 97.8 78 16 () 98 02/09/18 17:15 97.6 87 127/71 (89) 100 02/09/18 15:33 99.1 85 12 174/88 (116) 95 Manual Cuff/Auscultation 02/09/18 12:48 189/91 (123) 02/09/18 12:47 98.1 74 16 200/87 (124) 98 206/87 (126) 02/09/18 08:53 98.1 64 16 130/67 (88) 94 130/60 (83) General: Alert and Oriented, No acute distress Eye: PERRL, EOMI Respiratory: Non-labored respirations Cardiology: Normal rate Neurologic: Alert, Oriented, Normal sensory, Normal motor, No focal defects, CN II-XII intact, Normal DTR's Psychiatric: Appropriate mood & affect Exam Comments ox 2, not to exact date, follows, pleasant, calm, eomi, face sym, no drift Problem Qualifiers (1) TIA (transient ischemic attack): Qualified Codes: G45.9 - Transient cerebral ischemic attack, unspecified (2) HTN (hypertension): Qualified Codes: I10 - Essential (primary) hypertension (3) Hypothyroid: Qualified Codes: E03.9 - Hypothyroidism, unspecified Michael Solares MD February 10, 2018 08:19
[2018-02-10] MEDS: DOCUSATE SODIUM 50 MG/SENNA 8.6 MG TAB PO SCH ×2 (08:48→20:13)
[2018-02-10] MEDS: CLOPIDOGREL 75 MG TAB PO SCH (08:48)
[2018-02-10] MEDS: ALLOPURINOL 100 MG TAB PO SCH (08:49)
[2018-02-10] MEDS: ASPIRIN EC 325 MG TABEC PO SCH (08:49)
[2018-02-10] MEDS: LISINOPRIL 5 MG TAB PO SCH ×2 (08:49→08:55)
[2018-02-10] MEDS: HEPARIN SODIUM - SQ 10,000 UNITS/ML VIAL SQ SCH ×2 (08:50→20:13)
[2018-02-10] MEDS: SODIUM CHLORIDE 0.9% FLUSH 10 ML FLUSH IV FLUSH SCH ×2 (08:50→20:12)
--- NOTE | 2018-02-10 09:35 | HHI.PR ---
Subjective Remarks Little more confused this am Easily reoriented. Objective Vital Signs Date Time Temp Pulse Resp B/P (MAP) Pulse Ox O2 Delivery O2 Flow Rate FiO2 02/10/18 07:57 97.5 61 16 104/59 (74) 95 91/53 (66) 02/10/18 07:49 46 02/10/18 04:57 102/68 (79) 02/10/18 04:44 98.5 50 17 93 02/10/18 01:26 98.2 85 17 100 02/10/18 00:07 70 02/09/18 23:52 120/68 (85) 02/09/18 21:49 18 02/09/18 20:45 172/96 (121) 02/09/18 20:30 98 02/09/18 20:05 75 02/09/18 19:59 97.8 78 16 () 98 02/09/18 17:15 97.6 87 127/71 (89) 100 02/09/18 15:33 99.1 85 12 174/88 (116) 95 Manual Cuff/Auscultation 02/09/18 12:48 189/91 (123) 02/09/18 12:47 98.1 74 16 200/87 (124) 98 206/87 (126) I/O 02/09/18 02/09/18 02/09/18 02/10/18 02/10/18 02/10/18 07:00 15:00 23:00 07:00 15:00 23:00 Intake Total 480 ml Balance 480 ml Intake Oral 480 ml # Voids 2 Result Diagram: 02/07/18 1010 02/08/18 0426 Objective Remarks GENERAL: This is a well-nourished, well-developed patient, in no apparent distress. HEENT- Pupils equal and reactive, airway patent NECK: Trachea midline. No JVD CARDIOVASCULAR: Regular rate and rhythm without murmurs, gallops, or rubs. RESPIRATORY: Clear to auscultation. Breath sounds equal bilaterally. GASTROINTESTINAL: Abdomen soft, non-tender, nondistended. MUSCULOSKELETAL: MONTANEZ, no edema NEUROLOGICAL: Awake and alert, pleasantly confused speech normal Medications and IVs Current Medications Medications (Trade) Dose Ordered Sig/Glenn Route Start Time Stop Time Status Last Admin (NS Flush) 2 ml UNSCH PRN IV FLUSH 02/07/18 10:45 (NS Flush) 2 ml BID IV FLUSH 02/07/18 21:00 02/10/18 08:50 (Tylenol) 650 mg Q4H PRN PO 02/07/18 10:45 02/09/18 20:48 (Zofran Inj) 4 mg Q6H PRN IVP 02/07/18 10:45 (Narcan Inj) 0.4 mg UNSCH PRN IV PUSH 02/07/18 10:45 (Elizabeth-Colace) 1 tab BID PO 02/07/18 21:00 02/10/18 08:48 (Milk Of Magnesia Liq) 30 ml Q12H PRN PO 02/07/18 10:45 (Senokot) 17.2 mg Q12H PRN PO 02/07/18 10:45 (Dulcolax Supp) 10 mg DAILY PRN RECTAL 02/07/18 10:45 (Lactulose Liq) 30 ml DAILY PRN PO 02/07/18 10:45 (Heparin Inj) 5,000 units Q12HR SQ 02/07/18 21:00 02/10/18 08:50 (Ecotrin Ec) 325 mg DAILY PO 02/08/18 15:45 02/10/18 08:49 (Plavix) 75 mg DAILY PO 02/07/18 15:45 02/10/18 08:48 (Norvasc) 10 mg DAILY PO 02/08/18 09:00 02/10/18 08:49 (Zyloprim) 100 mg DAILY PO 02/08/18 09:00 02/10/18 08:49 (Lipitor) 40 mg HS PO 02/08/18 21:00 (Catapres) 0.1 mg Q6H PRN PO 02/09/18 17:15 02/09/18 20:48 (Prinivil) 2.5 mg DAILY PO 02/10/18 09:00 Assessment and Plan Problem List: (1) TIA (transient ischemic attack) ICD Codes: G45.9 - Transient cerebral ischemic attack, unspecified Status: Acute Plan: Symptoms resolve ASA, statin therapy (2) HTN (hypertension) ICD Codes: I10 - Essential (primary) hypertension Status: Chronic Plan: Cont to monitor, low this am. Lisinopril decreased (3) Gout ICD Codes: M10.9 - Gout, unspecified Plan: uric acid 4.7, cont allopurinol to prevent flare up. (4) Hypothyroid ICD Codes: E03.9 - Hypothyroidism, unspecified Status: Chronic Plan: Cont home medications Assessment and Plan Patient cleared for DC by neuro. daughter feel she is not safe at home. Patient agrees for some SNF placement CM consulted DC once arrangements made, [id number] on chart Problem Qualifiers (1) TIA (transient ischemic attack): Qualified Codes: G45.9 - Transient cerebral ischemic attack, unspecified (2) HTN (hypertension): Qualified Codes: I10 - Essential (primary) hypertension (3) Hypothyroid: Qualified Codes: E03.9 - Hypothyroidism, unspecified Aleah Mckay February 10, 2018 09:35
[2018-02-10] MEDS: ACETAMINOPHEN 325 MG TAB PO PRN ×2 (13:13→17:35)
--- NOTE | 2018-02-10 17:49 | HHI.PR ---
Subjective Remarks sr Objective Vital Signs Date Time Temp Pulse Resp B/P (MAP) Pulse Ox O2 Delivery O2 Flow Rate FiO2 02/10/18 16:45 64 02/10/18 16:00 98.3 65 18 144/70 (94) 98 02/10/18 15:43 69 02/10/18 11:47 97.1 54 16 103/57 (72) 97 Manual Cuff/Auscultation 02/10/18 07:57 97.5 61 16 104/59 (74) 95 91/53 (66) 02/10/18 07:49 46 02/10/18 04:57 102/68 (79) 02/10/18 04:44 98.5 50 17 93 02/10/18 01:26 98.2 85 17 100 02/10/18 00:07 70 02/09/18 23:52 120/68 (85) 02/09/18 21:49 18 02/09/18 20:45 172/96 (121) 02/09/18 20:30 98 02/09/18 20:05 75 02/09/18 19:59 97.8 78 16 () 98 I/O 02/09/18 02/09/18 02/09/18 02/10/18 02/10/18 02/10/18 07:00 15:00 23:00 07:00 15:00 23:00 Intake Total 480 ml Balance 480 ml Intake Oral 480 ml # Voids 2 Result Diagram: 02/07/18 1010 02/08/18 0426 Objective Remarks ox3 month yr not day vff 5/5 nl gait no visual nor sensory neglect Assessment and Plan Assessment and Plan imp b12 shot recheck mri back to baseline now Kiko Nicole MD February 10, 2018 17:49
[2018-02-10] MEDS: CYANOCOBALAMIN 1000 MCG/ML VIAL SQ SCH (18:05)
--- NOTE | 2018-02-10 19:41 | RADRPT ---
EXAM DATE/TIME: 02/10/2018 18:56 [facility] COMPARISON: No previous studies available for comparison. INDICATIONS : CVA. MEDICAL HISTORY : Carcinoma, thyroid. Hypertension. SURGICAL HISTORY : Thyroidectomy. ENCOUNTER: Initial ACUITY: 1 day PAIN SCORE: 2/10 LOCATION: Bilateral cranial TECHNIQUE: Multiplanar, multisequence MRI of the brain was performed without contrast. FINDINGS: Remote infarct right basal ganglia. Chronic white matter ischemic changes. No recent infarct, mass ef fect or shift. No hydrocephalus. CONCLUSION: 1. Remote infarct right basal ganglia. No acute intracranial abnormalities. Moderate white matter isc hemic changes. Óscar Vincent MD on February 10, 2018 at 19:36 Board Certified Radiologist. This report was verified electronically.
[2018-02-10] MEDS: ATORVASTATIN 40 MG TAB PO SCH (20:13)
[2018-02-11] VITALS (10 sets, daily range): BP systolic 99–133; BP diastolic 51–71; PULSE 46–65; RESP 16–20; TEMP 97.5–98; O2SAT 94–98
[2018-02-11] MEDS: ASPIRIN EC 325 MG TABEC PO SCH (08:00)
[2018-02-11] MEDS: CYANOCOBALAMIN 1000 MCG/ML VIAL SQ SCH (08:00)
[2018-02-11] MEDS: CLOPIDOGREL 75 MG TAB PO SCH (08:00)
[2018-02-11] MEDS: SODIUM CHLORIDE 0.9% FLUSH 10 ML FLUSH IV FLUSH SCH ×2 (08:01→20:23)
[2018-02-11] MEDS: HEPARIN SODIUM - SQ 10,000 UNITS/ML VIAL SQ SCH ×2 (08:01→20:22)
[2018-02-11] MEDS: DOCUSATE SODIUM 50 MG/SENNA 8.6 MG TAB PO SCH ×2 (08:01→20:22)
[2018-02-11] MEDS: ALLOPURINOL 100 MG TAB PO SCH (08:01)
[2018-02-11] MEDS: LISINOPRIL 5 MG TAB PO SCH (08:02)
--- NOTE | 2018-02-11 09:32 | HHI.PR ---
Subjective Remarks sr Objective Vital Signs Date Time Temp Pulse Resp B/P (MAP) Pulse Ox O2 Delivery O2 Flow Rate FiO2 02/11/18 08:10 97.8 58 20 99/51 (67) 98 02/11/18 04:50 98.0 54 18 108/59 (75) 94 02/11/18 00:11 97.9 51 18 106/51 (69) 96 02/10/18 23:28 61 02/10/18 20:00 97.6 69 18 111/54 (73) 94 02/10/18 16:45 64 02/10/18 16:00 98.3 65 18 144/70 (94) 98 02/10/18 15:43 69 02/10/18 11:47 97.1 54 16 103/57 (72) 97 Manual Cuff/Auscultation I/O 02/10/18 02/10/18 02/10/18 02/11/18 02/11/18 02/11/18 07:00 15:00 23:00 07:00 15:00 23:00 # Voids 1 1 # Bowel Movements 1 Result Diagram: 02/07/18 1010 02/08/18 0426 Objective Remarks lynne vff face sym 02/11 t/o co temles lopez says tender Assessment and Plan Assessment and Plan imp b12 shot recheck mri no cva x2 back to baseline now check c spine xray and esr crp Kiko Monet MD February 11, 2018 09:32
--- NOTE | 2018-02-11 10:06 | HHI.PR ---
Subjective Remarks TIA is cleared and patient at baseline. Placement in SNF is pending. Objective Vital Signs Date Time Temp Pulse Resp B/P (MAP) Pulse Ox O2 Delivery O2 Flow Rate FiO2 02/11/18 08:10 97.8 58 20 99/51 (67) 98 02/11/18 04:50 98.0 54 18 108/59 (75) 94 02/11/18 00:11 97.9 51 18 106/51 (69) 96 02/10/18 23:28 61 02/10/18 20:00 97.6 69 18 111/54 (73) 94 02/10/18 16:45 64 02/10/18 16:00 98.3 65 18 144/70 (94) 98 02/10/18 15:43 69 02/10/18 11:47 97.1 54 16 103/57 (72) 97 Manual Cuff/Auscultation I/O 02/10/18 02/10/18 02/10/18 02/11/18 02/11/18 02/11/18 07:00 15:00 23:00 07:00 15:00 23:00 # Voids 1 1 # Bowel Movements 1 Result Diagram: 02/07/18 1010 02/08/18 0426 Imaging Last Impressions Brain MRI 02/10/18 0000 Signed Impressions: Service Date/Time: Saturday, February 10, 2018 18:56 - CONCLUSION: 1. Remote infarct right basal ganglia. No acute intracranial abnormalities. Moderate white matter ischemic changes. Óscar Vincent MD Neck Magnetic Resonance Angiography 02/07/18 0000 Signed Impressions: Service Date/Time: Wednesday, February 07, 2018 11:33 - CONCLUSION: No stenotic lesion seen. Benoit Anderson MD Head Magnetic Resonance Angiography 02/07/18 0000 Signed Impressions: Service Date/Time: Wednesday, February 07, 2018 11:33 - CONCLUSION: No evidence of vessel truncation or aneurysm. Incomplete [place] [facility] [place]. Benoit Anderson MD Head CT 02/07/18 0000 Signed Impressions: Service Date/Time: Wednesday, February 07, 2018 08:54 - CONCLUSION: 1. No acute intracranial abnormality is identified. 2. Chronic findings include mild generalized atrophy and chronic periventricular white matter change characteristic of chronic microvascular ischemia. There is also an old lacune in the right basal ganglia. Jp Lopez MD Objective Remarks HEENT - AT/N Resp - CTA CV - RRR without murmur, rub or gallop ABD - soft and nontender MS - FROM without deformity Neuro - pleasantly confused Medications and IVs Current Medications Medications (Trade) Dose Ordered Sig/Glenn Route Start Time Stop Time Status Last Admin (NS Flush) 2 ml UNSCH PRN IV FLUSH 02/07/18 10:45 (NS Flush) 2 ml BID IV FLUSH 02/07/18 21:00 02/11/18 08:01 (Tylenol) 650 mg Q4H PRN PO 02/07/18 10:45 02/10/18 17:35 (Zofran Inj) 4 mg Q6H PRN IVP 02/07/18 10:45 (Narcan Inj) 0.4 mg UNSCH PRN IV PUSH 02/07/18 10:45 (Elizabeth-Colace) 1 tab BID PO 02/07/18 21:00 02/10/18 20:13 (Milk Of Magnesia Liq) 30 ml Q12H PRN PO 02/07/18 10:45 (Senokot) 17.2 mg Q12H PRN PO 02/07/18 10:45 (Dulcolax Supp) 10 mg DAILY PRN RECTAL 02/07/18 10:45 (Lactulose Liq) 30 ml DAILY PRN PO 02/07/18 10:45 (Heparin Inj) 5,000 units Q12HR SQ 02/07/18 21:00 02/11/18 08:01 (Ecotrin Ec) 325 mg DAILY PO 02/08/18 15:45 02/11/18 08:00 (Plavix) 75 mg DAILY PO 02/07/18 15:45 02/11/18 08:00 (Norvasc) 10 mg DAILY PO 02/08/18 09:00 02/10/18 08:49 (Zyloprim) 100 mg DAILY PO 02/08/18 09:00 02/11/18 08:01 (Lipitor) 40 mg HS PO 02/08/18 21:00 (Catapres) 0.1 mg Q6H PRN PO 02/09/18 17:15 02/09/18 20:48 (Prinivil) 2.5 mg DAILY PO 02/10/18 09:00 (Vitamin B12 Inj) 1,000 mcg DAILY SQ 02/10/18 18:00 02/13/18 17:59 02/11/18 08:00 Assessment and Plan Problem List: (1) TIA (transient ischemic attack) ICD Codes: G45.9 - Transient cerebral ischemic attack, unspecified Status: Acute Plan: F/U Neuro recommendations (2) HTN (hypertension) ICD Codes: I10 - Essential (primary) hypertension Status: Chronic Plan: Controlled at present. Cont to monitor. Assessment and Plan AMS has resolved and neuro has cleared for D/C to SNF. Placement is pending. Discussed Condition With Patient Discharge Planning SNF Problem Qualifiers (1) TIA (transient ischemic attack): Qualified Codes: G45.9 - Transient cerebral ischemic attack, unspecified (2) HTN (hypertension): Qualified Codes: I10 - Essential (primary) hypertension Checo Delacruz February 11, 2018 10:06
--- NOTE | 2018-02-11 10:30 | RADRPT ---
EXAM DATE/TIME: 02/11/2018 10:06 [facility] COMPARISON: No previous studies available for comparison. INDICATIONS : Pain MEDICAL HISTORY : Carcinoma, thyroid. Hypertension. SURGICAL HISTORY : Thyroidectomy. ENCOUNTER: Subsequent ACUITY: 2 days PAIN SCORE: 3/10 LOCATION: Bilateral neck FINDINGS: 3 views of the cervical spine demonstrate no fracture or dislocation. There is 3 mm of anterolisthesi s at C7 on T1. Atlantoaxial relationship is within normal limits and there is no prevertebral soft ti ssue swelling. Osseous fusion is present between C3-C4. There is decreased disc height at C4-C5, C5-C 6, and C6-C7. Facet hypertrophy is also present at multiple levels. There are surgical clips in the a nterior neck bilaterally. CONCLUSION: No acute cervical spine abnormality is identified. There is 3 mm of anterolisthesis of C7 on T1 of un certain chronicity. Degenerative disc disease is present at C4-C5 through C6-C7. Jp Lopez MD on February 11, 2018 at 10:26 Board Certified Radiologist. This report was verified electronically.
--- NOTE | 2018-02-11 10:31 | RADRPT ---
EXAM DATE/TIME: 02/11/2018 10:02 [facility] COMPARISON: [facility]), February 11, 2018, 10:06. INDICATIONS : Pain MEDICAL HISTORY : Carcinoma, thyroid. Hypertension. SURGICAL HISTORY : Thyroidectomy. ENCOUNTER: Subsequent ACUITY: 2 days PAIN SCORE: 3/10 LOCATION: Bilateral neck FINDINGS: 2 lateral views of the cervical spine obtained during flexion and extension demonstrate no abnormal m otion. The 3 mm of anterolisthesis at C7 on T1 is stable. There is disease is present at C4-C5 throug h C6-C7. Osseous fusion is present at C3-C4. CONCLUSION: No abnormal motion identified on flexion extension views. The anterolisthesis of C7 on T1 is stable. Jp Lopez MD on February 11, 2018 at 10:28 Board Certified Radiologist. This report was verified electronically.
[2018-02-11] MEDS: ACETAMINOPHEN 325 MG TAB PO PRN (12:03)
[2018-02-11] MEDS: ATORVASTATIN 40 MG TAB PO SCH (20:22)
[2018-02-12] VITALS (8 sets, daily range): BP systolic 118–137; BP diastolic 64–79; PULSE 50–67; RESP 17–18; TEMP 97.4–98; O2SAT 95–97
[2018-02-12] MEDS: CYANOCOBALAMIN 1000 MCG/ML VIAL SQ SCH (08:50)
[2018-02-12] MEDS: LISINOPRIL 5 MG TAB PO SCH (08:50)
[2018-02-12] MEDS: ALLOPURINOL 100 MG TAB PO SCH (08:50)
[2018-02-12] MEDS: CLOPIDOGREL 75 MG TAB PO SCH (08:50)
[2018-02-12] MEDS: ASPIRIN EC 325 MG TABEC PO SCH (08:50)
[2018-02-12] MEDS: HEPARIN SODIUM - SQ 10,000 UNITS/ML VIAL SQ SCH ×2 (08:51→22:36)
[2018-02-12] MEDS: SODIUM CHLORIDE 0.9% FLUSH 10 ML FLUSH IV FLUSH SCH ×2 (08:51→22:38)
[2018-02-12] MEDS: DOCUSATE SODIUM 50 MG/SENNA 8.6 MG TAB PO SCH ×2 (08:51→22:36)
--- NOTE | 2018-02-12 09:43 | HHI.PR ---
Subjective Remarks sr Objective Vital Signs Date Time Temp Pulse Resp B/P (MAP) Pulse Ox O2 Delivery O2 Flow Rate FiO2 02/12/18 08:00 97.4 51 18 137/67 (90) 96 02/12/18 06:00 98.0 60 18 120/64 (82) 96 02/12/18 05:50 50 02/12/18 00:50 97.6 67 17 119/67 (84) 95 02/12/18 00:00 53 02/11/18 22:23 97.9 65 16 133/61 (85) 97 02/11/18 20:00 63 02/11/18 16:30 46 02/11/18 16:21 97.6 63 18 116/71 (86) 98 02/11/18 12:43 48 02/11/18 12:21 97.5 53 17 128/64 (85) 97 I/O 02/11/18 02/11/18 02/11/18 02/12/18 02/12/18 02/12/18 07:00 15:00 23:00 07:00 15:00 23:00 Intake Total 1520 ml 800 ml Balance 1520 ml 800 ml Intake Oral 1520 ml 800 ml # Voids 2 4 3 1 # Bowel Movements 1 1 0 1 Result Diagram: 02/08/18 0426 Objective Remarks nad no lopez today Assessment and Plan Assessment and Plan imp b12 shot recheck mri no cva x2 back to baseline now check c spine xray djd only and esr crp both ok Kiko Monet MD February 12, 2018 09:43
--- NOTE | 2018-02-12 09:56 | HHI.PR ---
Subjective Remarks TIA is cleared and patient at baseline. Placement in SNF is pending, but patient tells me today that she is not going back to SNF and will discuss again with her daughter. Objective Vital Signs Date Time Temp Pulse Resp B/P (MAP) Pulse Ox O2 Delivery O2 Flow Rate FiO2 02/12/18 08:00 97.4 51 18 137/67 (90) 96 02/12/18 06:00 98.0 60 18 120/64 (82) 96 02/12/18 05:50 50 02/12/18 00:50 97.6 67 17 119/67 (84) 95 02/12/18 00:00 53 02/11/18 22:23 97.9 65 16 133/61 (85) 97 02/11/18 20:00 63 02/11/18 16:30 46 02/11/18 16:21 97.6 63 18 116/71 (86) 98 02/11/18 12:43 48 02/11/18 12:21 97.5 53 17 128/64 (85) 97 I/O 02/11/18 02/11/18 02/11/18 02/12/18 02/12/18 02/12/18 07:00 15:00 23:00 07:00 15:00 23:00 Intake Total 1520 ml 800 ml Balance 1520 ml 800 ml Intake Oral 1520 ml 800 ml # Voids 2 4 3 1 # Bowel Movements 1 1 0 1 Result Diagram: 02/08/18 0426 Imaging Last Impressions Cervical Spine X-Ray 02/11/18 0000 Signed Impressions: Service Date/Time: Sunday, February 11, 2018 10:02 - CONCLUSION: No abnormal motion identified on flexion extension views. The anterolisthesis of C7 on T1 is stable. Jp Lopez MD Brain MRI 02/10/18 0000 Signed Impressions: Service Date/Time: Saturday, February 10, 2018 18:56 - CONCLUSION: 1. Remote infarct right basal ganglia. No acute intracranial abnormalities. Moderate white matter ischemic changes. Óscar Vincent MD Neck Magnetic Resonance Angiography 02/07/18 0000 Signed Impressions: Service Date/Time: Wednesday, February 07, 2018 11:33 - CONCLUSION: No stenotic lesion seen. Benoit Anderson MD Head Magnetic Resonance Angiography 02/07/18 0000 Signed Impressions: Service Date/Time: Wednesday, February 07, 2018 11:33 - CONCLUSION: No evidence of vessel truncation or aneurysm. Incomplete [place] [facility] [place]. Benoit Anderson MD Head CT 02/07/18 0000 Signed Impressions: Service Date/Time: Wednesday, February 07, 2018 08:54 - CONCLUSION: 1. No acute intracranial abnormality is identified. 2. Chronic findings include mild generalized atrophy and chronic periventricular white matter change characteristic of chronic microvascular ischemia. There is also an old lacune in the right basal ganglia. Jp Lopez MD Objective Remarks HEENT - AT/N Resp - CTA CV - RRR without murmur, rub or gallop ABD - soft and nontender MS - FROM without deformity Neuro - alert and oriented today Medications and IVs Current Medications Medications (Trade) Dose Ordered Sig/Glenn Route Start Time Stop Time Status Last Admin (NS Flush) 2 ml UNSCH PRN IV FLUSH 02/07/18 10:45 (NS Flush) 2 ml BID IV FLUSH 02/07/18 21:00 02/12/18 08:51 (Tylenol) 650 mg Q4H PRN PO 02/07/18 10:45 02/11/18 12:03 (Zofran Inj) 4 mg Q6H PRN IVP 02/07/18 10:45 (Narcan Inj) 0.4 mg UNSCH PRN IV PUSH 02/07/18 10:45 (Elizabeth-Colace) 1 tab BID PO 02/07/18 21:00 02/11/18 20:22 (Milk Of Magnesia Liq) 30 ml Q12H PRN PO 02/07/18 10:45 (Senokot) 17.2 mg Q12H PRN PO 02/07/18 10:45 (Dulcolax Supp) 10 mg DAILY PRN RECTAL 02/07/18 10:45 (Lactulose Liq) 30 ml DAILY PRN PO 02/07/18 10:45 (Heparin Inj) 5,000 units Q12HR SQ 02/07/18 21:00 02/12/18 08:51 (Ecotrin Ec) 325 mg DAILY PO 02/08/18 15:45 02/12/18 08:50 (Plavix) 75 mg DAILY PO 02/07/18 15:45 02/12/18 08:50 (Norvasc) 10 mg DAILY PO 02/08/18 09:00 02/12/18 08:50 (Zyloprim) 100 mg DAILY PO 02/08/18 09:00 02/12/18 08:50 (Lipitor) 40 mg HS PO 02/08/18 21:00 (Catapres) 0.1 mg Q6H PRN PO 02/09/18 17:15 02/09/18 20:48 (Prinivil) 2.5 mg DAILY PO 02/10/18 09:00 02/12/18 08:50 (Vitamin B12 Inj) 1,000 mcg DAILY SQ 02/10/18 18:00 02/13/18 17:59 02/12/18 08:50 Assessment and Plan Problem List: (1) TIA (transient ischemic attack) ICD Codes: G45.9 - Transient cerebral ischemic attack, unspecified Status: Acute Plan: F/U Neuro recommendations (2) HTN (hypertension) ICD Codes: I10 - Essential (primary) hypertension Status: Chronic Plan: Controlled at present. Cont to monitor. Assessment and Plan AMS has resolved and neuro is following but patient does not want to go to SNF and will discuss D/C home instead with her daughter today. Discussed Condition With Patient Discharge Planning SNF vs Home Problem Qualifiers (1) TIA (transient ischemic attack): Qualified Codes: G45.9 - Transient cerebral ischemic attack, unspecified (2) HTN (hypertension): Qualified Codes: I10 - Essential (primary) hypertension Checo Delacruz February 12, 2018 09:56
[2018-02-12] MEDS: ATORVASTATIN 40 MG TAB PO SCH (21:00)
[2018-02-13] VITALS (10 sets, daily range): BP systolic 115–158; BP diastolic 60–72; PULSE 51–67; RESP 18–20; TEMP 97.3–98; O2SAT 94–99
[2018-02-13] MEDS: LEVOTHYROXINE SODIUM 88 MCG TAB PO SCH (06:15)
--- NOTE | 2018-02-13 07:26 | HHI.PR ---
Review/Management Diagnosis/Plan: (1) TIA (transient ischemic attack) ICD Codes: G45.9 - Transient cerebral ischemic attack, unspecified Status: Acute Plan: neuro stable concern about underlying developing dementia recs neuro stable repeat mri brain stable aspirin/plavix. stop aspirin in 3 months. 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 outpatient neuro f/u and cognitive testing. (2) HTN (hypertension) ICD Codes: I10 - Essential (primary) hypertension Status: Chronic (3) Hypothyroid ICD Codes: E03.9 - Hypothyroidism, unspecified Status: Chronic Subjective Subjective Comments No acute events reported No headache No chest pain No dyspnea Active Medications Current Medications Medications (Trade) Dose Ordered Sig/Glenn Route Start Time Stop Time Status Last Admin (NS Flush) 2 ml UNSCH PRN IV FLUSH 02/07/18 10:45 (NS Flush) 2 ml BID IV FLUSH 02/07/18 21:00 02/12/18 22:38 (Tylenol) 650 mg Q4H PRN PO 02/07/18 10:45 02/11/18 12:03 (Zofran Inj) 4 mg Q6H PRN IVP 02/07/18 10:45 (Narcan Inj) 0.4 mg UNSCH PRN IV PUSH 02/07/18 10:45 (Elizabeth-Colace) 1 tab BID PO 02/07/18 21:00 02/12/18 22:36 (Milk Of Magnesia Liq) 30 ml Q12H PRN PO 02/07/18 10:45 (Senokot) 17.2 mg Q12H PRN PO 02/07/18 10:45 (Dulcolax Supp) 10 mg DAILY PRN RECTAL 02/07/18 10:45 (Lactulose Liq) 30 ml DAILY PRN PO 02/07/18 10:45 (Heparin Inj) 5,000 units Q12HR SQ 02/07/18 21:00 02/12/18 22:36 (Ecotrin Ec) 325 mg DAILY PO 02/08/18 15:45 02/12/18 08:50 (Plavix) 75 mg DAILY PO 02/07/18 15:45 02/12/18 08:50 (Norvasc) 10 mg DAILY PO 02/08/18 09:00 02/12/18 08:50 (Zyloprim) 100 mg DAILY PO 02/08/18 09:00 02/12/18 08:50 (Lipitor) 40 mg HS PO 02/08/18 21:00 (Catapres) 0.1 mg Q6H PRN PO 02/09/18 17:15 02/09/18 20:48 (Prinivil) 2.5 mg DAILY PO 02/10/18 09:00 02/12/18 08:50 (Vitamin B12 Inj) 1,000 mcg DAILY SQ 02/10/18 18:00 02/13/18 17:59 02/12/18 08:50 (Synthroid) 88 mcg DAILY@0600 PO 02/13/18 06:00 02/13/18 06:15 Allergies Allergies Coded Allergies Penicillins (Verified Allergy, Unknown, hives, 02/07/18) erythromycin base (Verified Allergy, Unknown, rash, 02/07/18) tetracycline (Verified Allergy, Unknown, hives, 02/07/18) Review of Systems All other ROS: ROS reviewed as documented in chart Exam I&O / VS Vital Signs Date Time Temp Pulse Resp B/P (MAP) Pulse Ox O2 Delivery O2 Flow Rate FiO2 02/13/18 04:00 52 02/13/18 00:30 97.3 64 18 120/60 (80) 96 02/13/18 00:00 53 02/12/18 20:00 98.0 67 17 118/65 (82) 97 02/12/18 20:00 59 02/12/18 16:00 97.4 59 18 129/74 (92) 96 02/12/18 16:00 62 02/12/18 12:00 97.5 58 18 121/79 (93) 97 02/12/18 08:00 56 02/12/18 08:00 97.4 51 18 137/67 (90) 96 General: Alert and Oriented, No acute distress Eye: PERRL, EOMI Respiratory: Non-labored respirations Cardiology: Normal rate Neurologic: Alert, Oriented, Normal sensory, Normal motor, No focal defects, CN II-XII intact, Normal DTR's Psychiatric: Appropriate mood & affect Exam Comments ox 3, knows month and year and why she is in hospital, follows, pleasant, calm, eomi, face sym, no drift Problem Qualifiers (1) TIA (transient ischemic attack): Qualified Codes: G45.9 - Transient cerebral ischemic attack, unspecified (2) HTN (hypertension): Qualified Codes: I10 - Essential (primary) hypertension (3) Hypothyroid: Qualified Codes: E03.9 - Hypothyroidism, unspecified Michael Solares MD February 13, 2018 07:26
[2018-02-13] MEDS: CYANOCOBALAMIN 1000 MCG/ML VIAL SQ SCH (08:22)
[2018-02-13] MEDS: ALLOPURINOL 100 MG TAB PO SCH (08:22)
[2018-02-13] MEDS: ASPIRIN EC 325 MG TABEC PO SCH (08:22)
[2018-02-13] MEDS: CLOPIDOGREL 75 MG TAB PO SCH (08:22)
[2018-02-13] MEDS: LISINOPRIL 5 MG TAB PO SCH (08:22)
[2018-02-13] MEDS: DOCUSATE SODIUM 50 MG/SENNA 8.6 MG TAB PO SCH ×2 (08:22→20:30)
[2018-02-13] MEDS: SODIUM CHLORIDE 0.9% FLUSH 10 ML FLUSH IV FLUSH SCH ×2 (08:23→20:30)
[2018-02-13] MEDS: HEPARIN SODIUM - SQ 10,000 UNITS/ML VIAL SQ SCH ×2 (08:23→20:30)
--- NOTE | 2018-02-13 18:38 | HHI.PR ---
Subjective Remarks pt set for discharge to SNF but now refuses wants to go home with HHC Objective Vital Signs Date Time Temp Pulse Resp B/P (MAP) Pulse Ox O2 Delivery O2 Flow Rate FiO2 02/13/18 16:31 54 02/13/18 15:11 98.0 62 20 129/62 (84) 94 02/13/18 12:02 51 02/13/18 11:28 97.7 64 20 145/72 (96) 96 02/13/18 08:03 97.9 53 20 158/69 (98) 96 02/13/18 06:00 98.0 67 19 115/67 (83) 99 02/13/18 04:00 52 02/13/18 00:30 97.3 64 18 120/60 (80) 96 02/13/18 00:00 53 02/12/18 20:00 98.0 67 17 118/65 (82) 97 02/12/18 20:00 59 I/O 02/12/18 02/12/18 02/12/18 02/13/18 02/13/18 02/13/18 07:00 15:00 23:00 07:00 15:00 23:00 Intake Total 800 ml 550 ml 820 ml 720 ml Balance 800 ml 550 ml 820 ml 720 ml Intake Oral 800 ml 550 ml 820 ml 720 ml # Voids 3 1 1 4 3 # Bowel Movements 0 1 0 0 2 Imaging Last Impressions Cervical Spine X-Ray 02/11/18 0000 Signed Impressions: Service Date/Time: Sunday, February 11, 2018 10:02 - CONCLUSION: No abnormal motion identified on flexion extension views. The anterolisthesis of C7 on T1 is stable. Jp Lopez MD Brain MRI 02/10/18 0000 Signed Impressions: Service Date/Time: Saturday, February 10, 2018 18:56 - CONCLUSION: 1. Remote infarct right basal ganglia. No acute intracranial abnormalities. Moderate white matter ischemic changes. Óscar Vincent MD Neck Magnetic Resonance Angiography 02/07/18 0000 Signed Impressions: Service Date/Time: Wednesday, February 07, 2018 11:33 - CONCLUSION: No stenotic lesion seen. Benoit Anderson MD Head Magnetic Resonance Angiography 02/07/18 0000 Signed Impressions: Service Date/Time: Wednesday, February 07, 2018 11:33 - CONCLUSION: No evidence of vessel truncation or aneurysm. Incomplete [place]. Benoit Anderson MD Head CT 02/07/18 0000 Signed Impressions: Service Date/Time: Wednesday, February 07, 2018 08:54 - CONCLUSION: 1. No acute intracranial abnormality is identified. 2. Chronic findings include mild generalized atrophy and chronic periventricular white matter change characteristic of chronic microvascular ischemia. There is also an old lacune in the right basal ganglia. Jp Lopez MD Other Results Reported Meds & Active Scripts Active Reported Synthroid (Levothyroxine Sodium) 88 Mcg Tab 88 Mcg PO DAILY Objective Remarks GENERAL: Well-nourished, well-developed patient elderly white female. SKIN: Warm and dry. HEAD: Normocephalic. EYES: No scleral icterus. No injection or drainage. NECK: Supple, trachea midline. No JVD or lymphadenopathy. CARDIOVASCULAR: Regular rate and rhythm without murmurs, gallops, or rubs. RESPIRATORY: Breath sounds equal bilaterally. No accessory muscle use. GASTROINTESTINAL: Abdomen soft, non-tender, nondistended. EXTREMITIES: No cyanosis, or edema. NEUROLOGICAL: Awake, alert, and oriented x 3. Non-focal. Medications and IVs Inpatient Medications Acetaminophen (Tylenol) 650 mg Q4H PRN PO TEMP > 100.4 Last administered on 02/11at 12:03; Start 02/07/18 at 10:45 Allopurinol (Zyloprim) 100 mg DAILY PO Last administered on 02/13/18at 08:22; Start 02/08/18 at 09:00 Amlodipine Besylate (Norvasc) 10 mg DAILY PO Last administered on 02/13/18at 08: 22; Start 02/08/18 at 09:00 Aspirin (Aspirin Chew) 324 mg ONCE ONCE CHEW Last administered on 02/07/18at 10: 36; Start 02/07/18 at 10:15; Stop 02/07/18 at 10:16; Status DC Aspirin (Ecotrin Ec) 325 mg DAILY PO Last administered on 02/13/18at 08:22; Start 02/08/18 at 15:45 Atorvastatin Calcium (Lipitor) 40 mg HS PO ; Start 02/08/18 at 21:00 Bisacodyl (Dulcolax Supp) 10 mg DAILY PRN RECTAL SEVERE CONSITIPATION; Start at 10:45 Clonidine (Catapres) 0.1 mg Q6H PRN PO HYPERTENSION Last administered on at 20:48; Start 02/09/18 at 17:15 Clopidogrel Bisulfate (Plavix) 75 mg DAILY PO Last administered on 02/13/18 08: 22; Start 02/07/18 at 15:45 Cyanocobalamin (Vitamin B12 Inj) 1,000 mcg DAILY SQ Last administered on at 08:22; Start 02/10/18 at 18:00; Stop 02/13/18 at 17:59; Status DC Heparin Sodium (Porcine) (Heparin Inj) 5,000 units Q12HR SQ Last administered on 02/13/18 08:23; Start 02/07/18 at 21:00 Lactulose (Lactulose Liq) 30 ml DAILY PRN PO SEVERE CONSITIPATION; Start at 10:45 Levothyroxine Sodium (Synthroid) 88 mcg DAILY@0600 PO Last administered on at 06:15; Start 02/13/18 at 06:00 Lisinopril (Prinivil) 2.5 mg DAILY PO Last administered on 02/13/18 08:22; Start 02/10/18 at 09:00 Magnesium Hydroxide (Milk Of Magnesia Liq) 30 ml Q12H PRN PO Mild constipation ; Start 02/07/18 at 10:45 Naloxone HCl (Narcan Inj) 0.4 mg UNSCH PRN IV PUSH SEE LABEL COMMENTS; Start at 10:45 Ondansetron HCl (Zofran Inj) 4 mg Q6H PRN IVP NAUSEA OR VOMITING; Start at 10:45 Senna/Docusate Sodium (Elizabeth-Colace) 1 tab BID PO Last administered on 02/13/18 08:22; Start 02/07/18 at 21:00 Sennosides (Senokot) 17.2 mg Q12H PRN PO Moderate constipation; Start 02/07/18 at 10:45 Sodium Chloride (NS Flush) 2 ml BID IV FLUSH Last administered on 02/13/18at 08: 23; Start 02/07/18 at 21:00 Assessment and Plan Problem List: (1) TIA (transient ischemic attack) ICD Codes: G45.9 - Transient cerebral ischemic attack, unspecified Status: Acute (2) HTN (hypertension) ICD Codes: I10 - Essential (primary) hypertension Status: Chronic Assessment and Plan neuro baker in progress will dc home with HHC once cleared by neuro Discharge Planning home with HHC Problem Qualifiers (1) TIA (transient ischemic attack): Qualified Codes: G45.9 - Transient cerebral ischemic attack, unspecified (2) HTN (hypertension): Qualified Codes: I10 - Essential (primary) hypertension Antonio Bateman DO February 13, 2018 18:38
[2018-02-13] MEDS: ATORVASTATIN 40 MG TAB PO SCH (20:30)
[2018-02-14] VITALS: BP 156/85; PULSE 51; PULSE 52; RESP 18; TEMP 97.7; O2SAT 96
[2018-02-14 04:00] VITALS: BP 122/66; PULSE 51; RESP 18; TEMP 97.5; O2SAT 95
[2018-02-14] MEDS: LEVOTHYROXINE SODIUM 88 MCG TAB PO SCH (06:23)
[2018-02-14 08:00] VITALS: BP 119/68; PULSE 50; RESP 16; TEMP 97.4; O2SAT 95
[2018-02-14] MEDS: ALLOPURINOL 100 MG TAB PO SCH (08:53)
[2018-02-14] MEDS: CLOPIDOGREL 75 MG TAB PO SCH (08:53)
[2018-02-14] MEDS: DOCUSATE SODIUM 50 MG/SENNA 8.6 MG TAB PO SCH (08:54)
[2018-02-14] MEDS: HEPARIN SODIUM - SQ 10,000 UNITS/ML VIAL SQ SCH (08:54)
[2018-02-14] MEDS: ASPIRIN EC 325 MG TABEC PO SCH (08:54)
[2018-02-14] MEDS: LISINOPRIL 5 MG TAB PO SCH (08:54)
[2018-02-14] MEDS ORDERED: PLAV75TA29 PO (08:57)
[2018-02-14] MEDS ORDERED: AMLO10 PO (08:57)
[2018-02-14] MEDS ORDERED: ASPI325T33 PO (08:57)
[2018-02-14] MEDS ORDERED: ALLO100 PO (08:57)
[2018-02-14] MEDS ORDERED: ATOR40TA16 PO (08:57)
[2018-02-14] MEDS ORDERED: LISI-519 PO (08:57)
--- NOTE | 2018-02-14 09:01 | HHI.FF ---
Face to Face Verification Diagnosis: (1) TIA (transient ischemic attack) (2) HTN (hypertension) Physical Therapy Order: Evaluate and Treat Occupational Therapy Order: Evaluate and Treat Home Health Nursing Order: Signs/symptoms of disease process Medication education-adverse effect [employer] Order: To Provide: Long range planning I have seen patient Abel Greenberg on 02/14/18. My clinical findings support the need for the requested home health care services because: Deconditioned w/ increased weakness Med compliance is questionable Need for psychosocial assistance High risk of falls I certify that my clinical findings support that this patient is homebound because: Unsteady gait/balance Need for psychosocial assistance Aleah Mckay February 14, 2018 09:01
[2018-02-14] MEDS: SODIUM CHLORIDE 0.9% FLUSH 10 ML FLUSH IV FLUSH SCH (09:08)
--- NOTE | 2018-02-14 09:08 | HHI.DS ---
Discharge Summary Admission Date February 07, 2018 at 10:35 Admitting Diagnosis TIA, dysarthria resolved, dizziness resolved Brief History The patient is a 87-year-old female who presents to the emergency department via EMS as a stroke alert. She felt like her leg suddenly became weak and had "garbled speech "and left-sided facial droop with possibly left upper extremity weakness. Symptoms resolved on evac ride to hospital. Medical history includes HTN, Hypothyroid and HLD. Significant Findings Laboratory Tests Test 02/11/18 10:46 Erythrocyte Sedimentation Rate 31 mm/hr (0-30) C-Reactive Protein 0.79 MG/DL (0.00-0.30) PE at Discharge GENERAL: This is a well-nourished, well-developed patient, in no apparent distress. HEENT- Pupils equal and reactive, airway patent NECK: Trachea midline. No JVD CARDIOVASCULAR: Regular rate and rhythm without murmurs, gallops, or rubs. RESPIRATORY: Clear to auscultation. Breath sounds equal bilaterally. GASTROINTESTINAL: Abdomen soft, non-tender, nondistended. MUSCULOSKELETAL: MONTANEZ, no edema NEUROLOGICAL: Awake and alert, pleasantly confused speech normal Hospital Course Presented as stroke alert, symptoms resolved. Mri showed . No acute hemorrhage, mass or evidence of infarction. Moderate atrophic change and chronic small vessel ischemic changes, Old lacunar infarct in the right basal ganglia. She was to be DC home, neurology signed off. Then developed Left sided weakness on 02/10/18 neurology reconsulted. She was evaluated by PT Qualified for SNF placement but refuses. Does have some underlying dementia and lives alone. Daughter in area. Will be sent home with [facility] and social services analyst rm. Pt Condition on Discharge: Good Discharge Disposition: Disch w/ Home Health Serv Discharge Instructions DIET: Follow Instructions for: As Tolerated, No Restrictions, Heart Healthy Diet Speech Therapy-Diet Recommenda: Regular Activities you can perform: Regular-No Restrictions Follow up Referrals: Neurology - 1 Week with Michael Solares MD PCP Follow-up - [address] Antonio Bateman Call for apt. [phone] New Medications: Allopurinol (Zyloprim) 100 Mg Tab 100 MG PO DAILY for gout prevention for 30 Days, #30 TAB Amlodipine (Norvasc) 10 Mg Tab 10 MG PO DAILY for htn for 30 Days, #[address] (Aspirin EC) 325 Mg Tabdr 325 MG PO DAILY for clot prevention for 30 Days, #30 TAB Atorvastatin (Atorvastatin) 40 Mg Tab 40 MG PO HS for HLD, #30 TAB Clopidogrel (Plavix) 75 Mg Tab 75 MG PO DAILY for Blood Clot Prevention MDD 75 for 30 Days, #30 TAB Lisinopril (Lisinopril) 5 Mg Tab 2.5 MG PO DAILY for HTN for 30 Days, #15 TAB Continued Medications: Levothyroxine (Synthroid) 88 Mcg Tab 88 MCG PO DAILY for Thyroid, #30 TAB 0 Refills Additional Information No Driving until follow up with Neuro. Aleah Mckay February 14, 2018 09:08
[2018-02-14 09:09] LABS: AUTOMATED NEUTROPHIL # 2.1 TH/MM3 (1.8-7.7); BASOPHIL % 0.7 % (0.0-2.0); EOSINOPHIL # 0.1 TH/MM3 (0-0.4); EOSINOPHIL % 1.9 % (0.0-4.0); HEMATOCRIT 34.4 % (35.0-46.0); HEMOGLOBIN 11.9 GM/DL (11.6-15.3); LYMPH % 53.5 % (9.0-44.0); LYMPHOCYTE # 3.1 TH/MM3 (1.0-4.8); MEAN CELL VOLUME 95.2 FL (80.0-100.0); MEAN CORPUSCULAR HEMOGLOBIN 32.9 PG (27.0-34.0); MEAN CORPUSCULAR HGB CONC 34.5 % (32.0-36.0); MONO % 7.4 % (0.0-8.0); MONOCYTE # 0.4 TH/MM3 (0-0.9); NEUT % 36.5 % (16.0-70.0); PLATELET COUNT 201 TH/MM3 (150-450); RED BLOOD COUNT 3.61 MIL/MM3 (4.00-5.30); RED CELL DISTRIBUTION WIDTH 13.7 % (11.6-17.2); WHITE BLOOD COUNT 5.8 TH/MM3 (4.0-11.0)
[2018-02-14 09:38] LABS: CREATININE 1.12 MG/DL (0.50-1.00)
[2018-02-14 12:00] VITALS: BP 119/58; PULSE 60; PULSE 62; RESP 16; TEMP 97.2; O2SAT 92
== END 2018-02-14 15:40 | disposition home health service (06) | DRG 69 ==
LOC: NEPC 08:39 → NEDA 10:11 → OBSVTOIN 10:35 → NEPFCDU 11:45 → N05A 02-10 14:27
PROVIDERS: ADMIT Family Medicine; ATTEND Family Medicine
DX: G45.9 Transient cerebral ischemic attack, unspecified (principal); F03.90 Unspecified dementia, unspecified severity, without behavioral disturbance, psychotic disturbance, mood disturbance, and anxiety; I10 Essential (primary) hypertension; E03.9 Hypothyroidism, unspecified; E78.5 Hyperlipidemia, unspecified; M10.9 Gout, unspecified
CPT/HCPCS: 70450; 70544; 70548; 70551; 72040; 76937; 80048; 80053; 80061; 80307; 81001; 82550; 82607; 84436; 84443; 84484; 84550; 85025; 85384; 85610; 85652; 85730; 86140; 86850; 86900; 86901; 93005; 93306; A9579; J1644; J3420